=== PATIENT | female | born 1930 | race African-American/Black ===

== ENCOUNTER 2016-08-26 14:01 | Emergency (ER) | payer MEDICARE, MEDICAID ==
[2016-08-26] MEDS ORDERED: ONDANSETRON HCL INJ/PF 4 MG/2 ML SDV IV ONE (14:42)
[2016-08-26] MEDS ORDERED: NORMAL SALINE 1000 ML 1,000 ML IV ONE (14:42)
--- NOTE | 2016-08-26 14:46 | ER Document Report ---
ED Seizure - General Time seen by provider: 14:25 Mode of Arrival: Medic Information source: Relative, Emergency Med Personnel, [facility], [facility] Records <IBIS COFFEY - Last Filed: 08/26/16 17:17> <MARLA LIU - Last Filed: 08/26/16 19:54> - General Stated Complaint: WEAKNESS Notes: This 85-year-old female patient with past history of stroke and seizures brought emergency room by EMS for 2 seizures today. Most recent one just around lunchtime lasting up to 3 minutes. She seems to been nauseous today and did not eat. Emergency room she is doing some dry heaving. There's been no fever. Her stools have been loose and normally formed today. She was seen here in early March 2016 with seizures. Was given a loading dose of Keppra 500 mg, however when the send out's lab work returned she was actually therapeutic at the time. Family reports there has been no change in her Keppra dosing since then. (IBIS COFFEY) - Related Data Allergies/Adverse Reactions: No Known Allergies Allergy (Verified 07/04/15 14:13) Home Medications: Current Home Medications Apixaban [Eliquis 5 mg Tablet] 5 mg PO BID 08/26/16 [History] Escitalopram Oxalate [Lexapro 10 mg Tablet] 10 mg PO QHS 08/26/16 [History] Melatonin/Pyridoxine [Melatonin 3 Mg Tablet] 1 each PO QHS 08/26/16 [History] Potassium Chloride 10 meq PO DAILY 08/26/16 [History] Past Medical History - General Information source: Relative, Emergency Med Personnel, [facility], [facility] Records - Social History Smoking Status: Unknown if Ever Smoked Cigarette use (# per day): No Chew tobacco use (# tins/day): No Smoking Education Provided: No Frequency of alcohol use: None Drug Abuse: None Occupation: retired Lives with: Family Family History: Reviewed & Not Pertinent - Past Medical History Cardiac Medical History: Reports: Hx Atrial Fibrillation, Hx Hypertension Pulmonary Medical History: Reports: None EENT Medical History: Reports: None Neurological Medical History: Reports: 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, Hx Seizures Endocrine Medical History: Reports: None Renal/ Medical History: Reports: None GI Medical History: Reports: None Musculoskeltal Medical History: Reports Hx Arthritis Psychiatric Medical History: Reports: Hx Depression Surgical Hx: Negative - Immunizations Immunizations up to date: Yes Hx Diphtheria, Pertussis, Tetanus Vaccination: Yes <IBIS COFFEY - Last Filed: 08/26/16 17:17> Review of Systems - Review of Systems Constitutional: No symptoms reported EENT: No symptoms reported Cardiovascular: No symptoms reported Respiratory: No symptoms reported Gastrointestinal: See HPI Genitourinary: No symptoms reported Female Genitourinary: Post menopausal Musculoskeletal: See HPI Skin: No symptoms reported Hematologic/Lymphatic: No symptoms reported Neurological/Psychological: Dementia, Depression <IBIS COFFEY - Last Filed: 08/26/16 17:17> Physical Exam - Vital signs Interpretation: Normal - General General appearance: Alert In distress: None - HEENT Head: Normocephalic, Atraumatic Eyes: Normal Pupils: PERRL Mucous membranes: Normal Pharynx: Normal Neck: Normal - Respiratory Respiratory status: No respiratory distress Breath sounds: Normal - Cardiovascular Rhythm: Irregularly irregular Heart sounds: Normal auscultation Murmur: No - Abdominal Inspection: Obese Bowel sounds: Normal Tenderness: Nontender - Back Back: Normal - Extremities General upper extremity: Other - Right upper extremity contractures General lower extremity: Normal inspection - Neurological Neuro grossly intact: No Cognition: Other - Seems to be some dementia not really talking, does seem to understand her son to some degree - Psychological Associated symptoms: Confused, Psychomotor depression - Skin Skin Temperature: Warm Skin Moisture: Dry Skin Color: Normal <IBIS COFFEY - Last Filed: 08/26/16 17:17> <MARLA LIU - Last Filed: 08/26/16 19:54> - Vital signs Vitals: Temp Pulse Resp BP Pulse Ox 98.4 F 89 20 167/103 H 98 08/26/16 19:12 08/26/16 19:12 08/26/16 19:12 08/26/16 19:12 08/26/16 19:12 (MARLA LIU) - Neurological Notes: Has a right hemiparesis with contractures (IBIS COFFEY) Course - Laboratory Result Diagrams: 08/26/16 15:47 08/26/16 15:47 - Diagnostic Test Radiology reviewed: Image reviewed, Reports reviewed - Acute abdominal series does not show any acute process. - Transfer of Care Care transferred to following provider: Dr. Liu <IBIS COFFEY - Last Filed: 08/26/16 17:17> - Laboratory Result Diagrams: 08/26/16 15:47 08/26/16 15:47 <MARLA LIU - Last Filed: 08/26/16 19:54> - Re-evaluation Re-evalutation: 08/26/16 16:15 Around 1520 the patient began seizing where she looked off to the right jerking and lip smacking. When I held her hand she looked at me but clenched my hand and did not seem to be aware of her surroundings. 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 Ativan was ordered, however this seizure finally stopped long before the medication arrive so it was put on hold. (IBIS COFFEY) - Vital Signs Vital signs: Temp Pulse Resp BP Pulse Ox 99.8 F 96 18 161/98 H 99 08/26/16 19:43 08/26/16 19:43 08/26/16 19:43 08/26/16 19:43 08/26/16 19:43 (MARLA LIU) - Laboratory Laboratory results interpreted by me: 08/26/16 08/26/16 08/26/16 15:47 15:47 17:41 RDW 14.8 H Seg Neutrophils % 89.4 H Lymphocytes % 7.6 L Monocytes % 2.5 L Absolute Neutrophils 9.1 H Glucose 168 H Urine Protein 30 H Urine Ketones 20 H Urine Blood SMALL H (MARLA LIU) - Transfer of Care Notes: 08/26/16 17:17 Patient care is turned over to Dr. Liu pending urine collection and urinalysis , loading with Dilantin, and then reassessing. (IBIS COFFEY) Discharge <IBIS COFFEY - Last Filed: 08/26/16 17:17> <MARLA LIU - Last Filed: 08/26/16 19:54> - Discharge Clinical Impression: seizure with history seizure disorder Condition: Stable Disposition: HOME, SELF-CARE Additional Instructions: Seizure You have had a seizure. Seizure disorders (epilepsy) of one sort or another affect about one out of 50 people. The seizure occurs because of abnormal electrical activity in the brain. Seizures may be due to drugs and alcohol, strokes, brain injury, or infection. In the most common form of epilepsy, no cause can be found. You will require further evaluation to determine the cause of your seizure, and to determine whether anti-seizure medication is required. This follow-up testing is important, so please call us if you encounter problems with scheduling of tests or appointments. YOU SHOULD NOT DRIVE until released to do so by your physician. The law requires that seizures be reported to the boom truck driver's license bureau--a seizure while driving could be catastrophic. Call the doctor if seizures recur, or if you develop new symptoms such as fever, severe headache, stiff neck, confusion or increasing sleepiness, weakness or numbness, or visual problems. Referrals: PÉREZ BENOIT MD [Primary Care Provider] - Follow up tomorrow (Call the office first thing in the a.m. to be seen in follow-up in the a.m. as Dr. Benoit discussed with you here in the emergency department return for increasing worsening or new symptoms) Scribe Attestation: 08/26/16 17:18 I personally performed the services described in the documentation, reviewed and edited the documentation which was dictated to the scribe in my presence, and it accurately records my words and actions. (IBIS COFFEY)
[2016-08-26] MEDS ORDERED: LORAZEPAM INJ 2 MG/1 ML VIAL IV ONE (15:21)
[2016-08-26] MEDS ORDERED: PHENYTOIN SODIUM INJ/PF 250 MG/5 ML SDV IV ONE (15:40)
[2016-08-26 16:08] LABS: ABSOLUTE LYMPHOCYTES (AUTO) 0.8 10^3/uL (0.5-4.7); ABSOLUTE MONOCYTES (AUTO) 0.3 10^3/uL (0.1-1.4); ABSOLUTE NEUT (AUTO) 9.1 10^3/uL (1.7-8.2); BASOPHILS % (AUTO) 0.4 % (0-2); EOSINOPHILS % (AUTO) 0.1 % (0-6); HEMATOCRIT 41.4 % (36.0-47.0); HEMOGLOBIN 14.4 g/dL (12.0-15.5); HGB HCT DIFFERENCE 1.8; LYMPHOCYTES % (AUTO) 7.6 % (13-45); MEAN CORPUSCULAR HGB CONC 34.8 g/dL (32.0-36.0); MEAN CORPUSCULAR VOLUME 81 fl (80-97); MONOCYTES % (AUTO) 2.5 % (3-13); RED BLOOD COUNT 5.13 10^6/uL (3.72-5.28); RED CELL DISTRIBUTION WIDTH 14.8 % (11.5-14.0); SEGMENTED NEUTROPHILS % (AUTO) 89.4 % (42-78); WHITE BLOOD COUNT 10.2 10^3/uL (4.0-10.5)
[2016-08-26 16:26] LABS: ALANINE AMINOTRANSFERASE 24 U/L (9-52); ALBUMIN 4.2 g/dL (3.5-5.0); ALKALINE PHOSPHATASE 96 U/L (38-126); ANION GAP 14 (5-19); ASPARTATE AMINO TRANSFERASE 21 U/L (14-36); BILIRUBIN,TOTAL 0.8 mg/dL (0.2-1.3); BLOOD UREA NITROGEN 17 mg/dL (7-20); CALCIUM 9.4 mg/dL (8.4-10.2); CARBON DIOXIDE 25 mmol/L (22-30); CHLORIDE 101 mmol/L (98-107); CREATINE KINASE 55 U/L (30-135); CREATININE RESULT 0.61 mg/dL (0.52-1.25); GLUCOSE 168 mg/dL (75-110); POTASSIUM 3.9 mmol/L (3.6-5.0); SODIUM 140.1 mmol/L (137-145); TOTAL PROTEIN 8.2 g/dL (6.3-8.2)
[2016-08-26 16:38] LABS: CREATINE KINASE MB 0.67 ng/mL (<4.55)
[2016-08-26 16:40] LABS: TROPONIN I < 0.012 ng/mL
[2016-08-26 18:07] LABS: APPEARANCE,URINE CLEAR; BILIRUBIN,URINE NEGATIVE (NEGATIVE); GLUCOSE, URINE NEGATIVE (NEGATIVE); KETONES,URINE 20 mg/dL (NEGATIVE); LEUKOCYTE ESTERASE,URINE NEGATIVE (NEGATIVE); NITRITE,URINE NEGATIVE (NEGATIVE); PROTEIN,URINE 30 mg/dL (NEGATIVE); URINE SPECIFIC GRAVITY 1.005; UROBILINOGEN,URINE NEGATIVE mg/dL (<2.0)
--- NOTE | 2016-08-26 19:39 | ER Document Report ---
Doctor's Note Notes: 08/26/16 19:33 Patient seen and evaluated at the bedside care signed out to me by Dr. Hassan pending Dilantin infusion. Family is at the bedside patient with a history of a seizure disorder on Keppra had several seizures today. Patient with a history of CVA VA right-sided weakness and difficulty speaking at baseline. Patient seen and assessed at the bedside with family. Dr. Rivero is her primary care physician happened to be in the emergency department seeing other patients recognize them talk to them in the hallway and said that he would see them in follow-up in the office first thing tomorrow morning.(dR. RIVERO). Initially on arrival patient with elevated blood pressure 164/104, recheck vitals at the bedside 161/98 pulse 96 respiratory rate 18 O2 sat 99% on room air afebrile at 99.8. Patient is resting a phasic according to the family that's baseline. No active facial droop no nuchal rigidity right upper extremity weakness secondary to stroke which is chronic in nature. Patient is able to shake her head to me she feels better wants to go home discussed with family at the bedside. Patient was given Keppra loaded with Dilantin. She is can see her primary care physician first thing in the a.m. may need referral to a neurologist. No acute signs of infection on examination no nuchal rigidity wanting a spinal tap no focal seizures no change in neurological status according to the family. Opportunity for family did ask questions a feel comfortable taking her home at this point were arranging for transport. Discussed extensively reasons for ED return sooner 08/26/16 19:50
[2016-08-26 21:48] VITALS: BP 145/99
== END 2016-08-26 21:45 | disposition home or self-care (01) ==
LOC: ER 14:01
DX: G40.909 Epilepsy, unspecified, not intractable, without status epilepticus (principal); Z79.899 Other long term (current) drug therapy; I10 Essential (primary) hypertension; I69.351 Hemiplegia and hemiparesis following cerebral infarction affecting right dominant side; F03.90 Unspecified dementia, unspecified severity, without behavioral disturbance, psychotic disturbance, mood disturbance, and anxiety; F32.9 Major depressive disorder, single episode, unspecified
CPT/HCPCS: 99285; 96361; 96374; 96375; 36415; 82553; 82550; 85025; 80053; 81001; 84484; 74022; J1165; J2405; J7030

== ENCOUNTER 2017-05-12 12:43 | Observation (INO) | payer MEDICARE, MEDICAID ==
--- NOTE | 2017-05-12 15:47 | RADIOLOGY REPORT (SQ) ---
EXAM DESCRIPTION: CHEST SINGLE VIEW COMPLETED DATE/TIME: 05/12/2017 3:16 pm REASON FOR STUDY: afib,sob COMPARISON: Chest films 02/06/2014, 01/30/2015, 03/23/2015 EXAM PARAMETERS: NUMBER OF VIEWS: One view. TECHNIQUE: Single frontal radiographic view of the chest acquired. RADIATION DOSE: NA LIMITATIONS: None. FINDINGS: LUNGS AND PLEURA: No opacities, masses or pneumothorax. No pleural effusion. MEDIASTINUM AND HILAR STRUCTURES: No masses. Contour normal. HEART AND VASCULAR STRUCTURES: Heart normal in size. Normal vasculature. BONES: No acute findings. HARDWARE: None in the chest. OTHER: No other significant finding. IMPRESSION: NO ACUTE RADIOGRAPHIC FINDING IN THE CHEST. TECHNICAL DOCUMENTATION: JOB ID: [id number]
--- NOTE | 2017-05-12 15:50 | RADIOLOGY REPORT (SQ) ---
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 TECHNIQUE: AP pelvis and additional frog-leg view of the right and left hip. LIMITATIONS: None. FINDINGS: MINERALIZATION: Osteopenic PRIMARY HIP: No fracture or dislocation. Mild joint space narrowing and acetabular bony spurring. N o worrisome bone lesions. OPPOSITE HIP: No fracture or dislocation. Mild joint space narrowing and acetabular bony spurring. No worrisome bone lesions. PUBIS AND ISCHIUM: No fracture. PELVIS: No fracture. SACRUM: Bilateral SI joint sclerosis right greater than left. LOWER LUMBAR SPINE: Lower lumbar facet arthropathy at L4-5 and L5-S1 SOFT TISSUES: No findings. OTHER: No other significant finding. IMPRESSION: No acute fracture of the bony pelvis or hips Bilateral hip joint space narrowing and mild osteophyte formation Bilateral SI joint sclerosis TECHNICAL DOCUMENTATION: JOB ID: [id number]- All Rights Reserved
--- NOTE | 2017-05-12 16:47 | RADIOLOGY REPORT (SQ) ---
EXAM DESCRIPTION: SHOULDER BILAT 2 OR MORE VIEWS COMPLETED DATE/TIME: 05/12/2017 3:16 pm REASON FOR STUDY: osteoarthritis, multiple complaints I63.9 CEREBRAL INFARCTION, UNSPECIFIED Z79.89 9 OTHER [facility] (CURRENT) DRUG THERAPY COMPARISON: None. NUMBER OF VIEWS: Right shoulder two views, left shoulder three views TECHNIQUE: AP and Y-views right shoulder Internal rotation, external rotation, and Y view images acquired of the left shoulder. LIMITATIONS: None. FINDINGS: MINERALIZATION: Normal. BONES: No acute fracture or dislocation. No worrisome bone lesions. JOINTS: No glenohumeral dislocation. No right or left acromioclavicular joint narrowing or widening. Bony spurring along the undersurface of the right and left acromion VISUALIZED LUNGS AND RIBS: No pneumothorax. No rib fracture. SOFT TISSUES: Mild calcific tendinopathy left rotator cuff OTHER: No other significant finding. IMPRESSION: No acute changes. No high-grade joint space narrowing. Bony spurring along the undersurface of the right and left acromion, mild rotator cuff left shoulder calcific tendinopathy TECHNICAL DOCUMENTATION: JOB ID: [id number]- All Rights Reserved
--- NOTE | 2017-05-12 16:50 | RADIOLOGY REPORT (SQ) ---
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 NUMBER OF VIEWS: Two views right knee, two views left knee TECHNIQUE: AP and lateral cross-table bilateral knees. LIMITATIONS: None. FINDINGS: MINERALIZATION: Normal. RIGHT KNEE BONES: No acute fracture. No worrisome bone lesions. No joint effusion. Minimal patellofemoral comp artment joint space narrowing and bony spurring MEDIAL COMPARTMENT: Mild joint space narrowing with medial compartment osteophyte formation LATERAL COMPARTMENT: Moderate lateral compartment joint space narrowing and bony spurring. LEFT KNEE BONES: No acute fracture. No worrisome bone lesions. No joint effusion. Moderate patellofemoral shana nt space narrowing and bony spurring MEDIAL COMPARTMENT: Moderate medial compartment joint space narrowing, mild bony spurring LATERAL COMPARTMENT: Mild lateral compartment joint space narrowing and bony spurring IMPRESSION: Tricompartment osteoarthritis bilateral knees. No acute fracture. No joint effusion. TECHNICAL DOCUMENTATION: JOB ID: [id number] All Rights Reserved
[2017-05-12 16:51] LABS: HEMATOCRIT 43.2 % (36.0-47.0); HEMOGLOBIN 15.6 g/dL (12.0-15.5); HGB HCT DIFFERENCE 3.6; MEAN CORPUSCULAR HEMOGLOBIN 28.3 pg (27.0-33.4); MEAN CORPUSCULAR HGB CONC 36.2 g/dL (32.0-36.0); MEAN CORPUSCULAR VOLUME 78 fl (80-97); RED BLOOD COUNT 5.52 10^6/uL (3.72-5.28); RED CELL DISTRIBUTION WIDTH 13.9 % (11.5-14.0); WHITE BLOOD COUNT 9.2 10^3/uL (4.0-10.5)
[2017-05-12] MEDS ORDERED: OXYCODONE-ACETAMINOPHEN 5-325 MG TABLET ONE (17:22)
[2017-05-12 19:44] LABS: ALANINE AMINOTRANSFERASE 32 U/L (9-52); ALKALINE PHOSPHATASE 79 U/L (38-126); ANION GAP 16 (5-19); ASPARTATE AMINO TRANSFERASE 20 U/L (14-36); BILIRUBIN,DIRECT 0.4 mg/dL (0.0-0.4); BILIRUBIN,TOTAL 1.1 mg/dL (0.2-1.3); BLOOD UREA NITROGEN 66 mg/dL (7-20); CALCIUM 9.5 mg/dL (8.4-10.2); CARBON DIOXIDE 28 mmol/L (22-30); CHLORIDE 96 mmol/L (98-107); CREATININE RESULT 1.31 mg/dL (0.52-1.25); GLUCOSE 120 mg/dL (75-110); SODIUM 139.7 mmol/L (137-145); TOTAL PROTEIN 7.7 g/dL (6.3-8.2)
[2017-05-12 19:45] LABS: POTASSIUM 2.8 mmol/L (3.6-5.0)
[2017-05-12] MEDS ORDERED: (PENDING PHARMACY ID) (Levetiracetam [Keppra] 1,000 MG) PO SCH (19:45)
[2017-05-12] MEDS ORDERED: (PENDING PHARMACY ID) (Melatonin/Pyridoxine [Melatonin 3 Mg Tablet] 1 EACH) PO SCH (22:00)
[2017-05-12] MEDS ORDERED: (PENDING PHARMACY ID) (Melatonin/Pyridoxine Hcl (B6) [Melatonin 3 Mg Tablet] 1 EACH) PO SCH (22:00)
[2017-05-12] MEDS ORDERED: LEVETIRACETAM 500 MG TABLET PO SCH (22:00)
[2017-05-12] MEDS ORDERED: METOPROLOL TARTRATE 25 MG TABLET PO SCH (22:00)
[2017-05-12] MEDS: LEVETIRACETAM 500 MG TABLET PO SCH (22:31)
[2017-05-12] MEDS: ESCITALOPRAM OXALATE 10 MG TABLET PO SCH (22:31)
[2017-05-12] MEDS: APIXABAN 5 MG TABLET PO SCH (22:31)
[2017-05-12] MEDS: POTASSIUM CHLORIDE 20 MEQ/15 ML UDCUP PO SCH (22:31)
[2017-05-12] MEDS: VALSARTAN 160 MG TABLET PO SCH (22:31)
[2017-05-12] MEDS: HYDROCHLOROTHIAZIDE 25 MG TABLET PO SCH (22:32)
[2017-05-12] MEDS: DOXEPIN HCL 10 MG CAPSULE PO SCH (22:32)
--- NOTE | 2017-05-12 23:15 | EKG REPORT ---
SEVERITY:- ABNORMAL ECG - SINUS RHYTHM MULTIFORM VENTRICULAR PREMATURE COMPLEXES LEFT AXIS DEVIATION LEFT VENTRICULAR HYPERTROPHY : Confirmed by: Gerda Foley 12-May-2017 23:14:54
[2017-05-13] MEDS: POTASSIUM CHLORIDE 20 MEQ/15 ML UDCUP PO SCH ×2 (02:52→06:25)
[2017-05-13] MEDS ORDERED: VALSARTAN PO SCH (10:00)
[2017-05-13] MEDS ORDERED: [UNRECOGNIZED DRUG - OTHER] PO SCH (10:00)
[2017-05-13] MEDS ORDERED: (PENDING PHARMACY ID) (Levetiracetam [Keppra] 1,000 MG) PO SCH (10:00)
[2017-05-13] MEDS ORDERED: HYDROCHLOROTHIAZIDE PO SCH (10:00)
[2017-05-13] MEDS ORDERED: APIXABAN 5 MG TABLET PO SCH (10:00)
[2017-05-13] MEDS: APIXABAN 5 MG TABLET PO SCH ×2 (10:39→21:17)
[2017-05-13] MEDS: LEVETIRACETAM 500 MG TABLET PO SCH ×2 (10:39→21:17)
[2017-05-13] MEDS ORDERED: 1/2 NORMAL SALINE 1,000 ML with POTASSIUM CHLORIDE 40 MEQ IV PRN ×2 (18:47)
--- NOTE | 2017-05-13 20:25 | PDOC H&P ---
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 X- ray of the joints including the knee and the shoulder was done, it was consistent with osteoarthritis, the blood work showed hypokalemia azotemia that suggest dehydration. Past Medical History Cardiac Medical History: Reports: Atrial Fibrillation, Hypertension Neurological Medical History: Reports: Ischemic CVA, Seizures Musculoskeltal Medical History: Reports: Arthritis Psychiatric Medical History: Reports: Depression Hematology: Denies: Anemia Social History Smoking Status: Never Smoker Frequency of Alcohol Use: None Hx Recreational Drug Use: No Drugs: None Hx Prescription Drug Abuse: No Family History Family History: Reviewed & Not Pertinent Parental Family History Reviewed: Yes Children Family History Reviewed: Yes Sibling(s) Family History Reviewed.: Yes Medication/Allergy Home Medications: Apixaban [Eliquis 5 mg Tablet] 5 mg PO BID 05/12/17 Doxepin HCl [Sinequan 10 Mg Capsule] 10 mg PO QHS 05/12/17 Escitalopram Oxalate [Lexapro] 20 mg PO QHS 05/12/17 Levetiracetam [Keppra] 1,000 mg PO BID 05/12/17 Melatonin/Pyridoxine HCl (B6) [Melatonin 3 mg Tablet] 1 each PO QHS 05/12/17 Valsartan/Hydrochlorothiazide [Diovan Hct 320-25 mg Tablet] 1 each PO DAILY Allergies/Adverse Reactions: No Known Allergies Allergy (Verified 07/04/15 14:13) Review of Systems ROS unobtainable: Other - History difficult to obtain because of expressive dysphasia Ears: ABSENT: hearing changes Cardiovascular: ABSENT: chest pain, dyspnea on exertion, edema, orthropnea, palpitations Respiratory: ABSENT: cough, hemoptysis Gastrointestinal: ABSENT: as per HPI, abdominal pain, bloating, coffee ground emesis, constipation, diarrhea, dysphagia, heartburn, hematemesis, hematochezia , melena, nausea, vomiting, other Genitourinary: ABSENT: dysuria, hematuria Musculoskeletal: PRESENT: back pain, joint swelling Integumentary: ABSENT: rash, wounds Neurological: PRESENT: abnormal speech Psychiatric: ABSENT: anxiety, depression, homidical ideation, suicidal ideation Endocrine: ABSENT: cold intolerance, heat intolerance, menstrual abnormalities, polydipsia, polyuria Hematologic/Lymphatic: ABSENT: easy bleeding, easy bruising, lymphadenopathy Physical Exam Vital Signs: Temp Pulse Resp BP Pulse Ox 97.8 F 108 H 18 137/85 H 97 05/13/17 16:00 05/13/17 16:00 05/13/17 16:00 05/13/17 16:00 05/13/17 16:00 Intake & Output 05/12/17 05/13/17 05/14/17 06:59 06:59 06:59 Intake Total 780 Output Total 300 Balance 480 Weight 73.2 kg General appearance: PRESENT: no acute distress Head exam: PRESENT: atraumatic, normocephalic Eye exam: PRESENT: conjunctiva pink, EOMI, PERRLA. ABSENT: scleral icterus Mouth exam: PRESENT: dry mucosa Neck exam: PRESENT: full ROM Respiratory exam: PRESENT: clear to auscultation jesus manuel Cardiovascular exam: PRESENT: RRR Vascular exam: PRESENT: normal capillary refill GI/Abdominal exam: PRESENT: normal bowel sounds, soft Rectal exam: PRESENT: deferred Neurological exam: PRESENT: alert, motor sensory deficit - Right sided hemiplegia Psychiatric exam: PRESENT: appropriate affect, normal mood Skin exam: PRESENT: dry, intact, warm Results Laboratory Results: 05/12/17 16:30 05/13/17 15:12 05/13/17 15:12 Sodium Cancelled Potassium Cancelled Chloride Cancelled Carbon Dioxide Cancelled Anion Gap Cancelled BUN Cancelled Creatinine Cancelled Est GFR ( Amer) Cancelled Est GFR (Non-Af Amer) Cancelled Glucose Cancelled Calcium Cancelled Total Bilirubin Cancelled AST Cancelled ALT Cancelled Alkaline Phosphatase Cancelled Total Protein Cancelled Albumin Cancelled Impressions: Chest X-Ray 05/12/17 13:57 IMPRESSION: NO ACUTE RADIOGRAPHIC FINDING IN THE CHEST. Hip X-Ray 05/12/17 13:57 IMPRESSION: No acute fracture of the bony pelvis or hips Bilateral hip joint space narrowing and mild osteophyte formation Bilateral SI joint sclerosis Knee X-Ray 05/12/17 13:58 IMPRESSION: Tricompartment osteoarthritis bilateral knees. No acute fracture. No joint effusion. Shoulder X-Ray 05/12/17 13:58 IMPRESSION: No acute changes. No high-grade joint space narrowing. Bony spurring along the undersurface of the right and left acromion, mild rotator cuff left shoulder calcific tendinopathy Assessment & Plan - Diagnosis (1) Dehydration Is this a current diagnosis for this admission?: Yes Plan: Patient is admitted for observation and hydration (2) Hypokalemia Is this a current diagnosis for this admission?: Yes (3) Other polyosteoarthritis Is this a current diagnosis for this admission?: Yes
[2017-05-13] MEDS: OXYCODONE-ACETAMINOPHEN 5-325 MG TABLET PO PRN (20:32)
[2017-05-13] MEDS: VALSARTAN 160 MG TABLET PO SCH (21:17)
[2017-05-13] MEDS: HYDROCHLOROTHIAZIDE 25 MG TABLET PO SCH (21:17)
[2017-05-13] MEDS: ESCITALOPRAM OXALATE 10 MG TABLET PO SCH (21:17)
[2017-05-13] MEDS: DOXEPIN HCL 10 MG CAPSULE PO SCH (21:17)
[2017-05-14] MEDS: OXYCODONE-ACETAMINOPHEN 5-325 MG TABLET PO PRN ×2 (02:10→11:10)
[2017-05-14 07:25] LABS: ALANINE AMINOTRANSFERASE 22 U/L (9-52); ALBUMIN 4.1 g/dL (3.5-5.0); ALKALINE PHOSPHATASE 70 U/L (38-126); ANION GAP 12 (5-19); ASPARTATE AMINO TRANSFERASE 23 U/L (14-36); BILIRUBIN,DIRECT 0.6 mg/dL (0.0-0.4); BILIRUBIN,TOTAL 0.9 mg/dL (0.2-1.3); BLOOD UREA NITROGEN 45 mg/dL (7-20); CALCIUM 9.2 mg/dL (8.4-10.2); CARBON DIOXIDE 29 mmol/L (22-30); CHLORIDE 101 mmol/L (98-107); CREATININE RESULT 0.98 mg/dL (0.52-1.25); GLUCOSE 100 mg/dL (75-110); POTASSIUM 4.3 mmol/L (3.6-5.0); SODIUM 141.7 mmol/L (137-145); TOTAL PROTEIN 8.3 g/dL (6.3-8.2)
[2017-05-14] MEDS: APIXABAN 5 MG TABLET PO SCH (10:04)
[2017-05-14] MEDS: LEVETIRACETAM 500 MG TABLET PO SCH (10:04)
[2017-05-14 18:31] VITALS: BP 150/90
--- NOTE | 2017-05-14 20:37 | PDOC DISCHARGE SUMMARY ---
General - Admit/Disc Date/PCP Admission Date/Primary Care Provider: 05/12/17 12:44 PÉREZ RIVERO MD Discharge Date: 05/14/17 - Discharge Diagnosis (1) Dehydration Is this a current diagnosis for this admission?: Yes (2) Hypokalemia Is this a current diagnosis for this admission?: Yes (3) Other polyosteoarthritis Is this a current diagnosis for this admission?: Yes - Additional Information Discharge Diet: Regular Discharge Activity: Activity As Tolerated Home Medications: Apixaban [Eliquis 5 mg Tablet] 5 mg PO BID 05/12/17 Escitalopram Oxalate [Lexapro] 20 mg PO QHS 05/12/17 Levetiracetam [Keppra] 1,000 mg PO BID 05/12/17 Melatonin/Pyridoxine HCl (B6) [Melatonin 3 mg Tablet] 1 each PO QHS 05/12/17 Valsartan/Hydrochlorothiazide [Diovan Hct 320-25 mg Tablet] 1 each PO DAILY Melatonin/Pyridoxine [Melatonin 3 mg Tablet] 1 each PO .QHS 05/14/17 Tramadol HCl/Acetaminophen [Ultracet 37.5 mg/325 mg Tablet] 1 each PO Q6H #60 tablet 05/14/17 History of Present Illness History of Present Illness: EDWINA MARIE is a 86 year old female, she has a history of cerebrovascular accident with residual right-sided hemiplegia, expressive dysphasia, pseudobulbar affect, she came to the office with family for evaluation of multiple complaints, including poor intake, poor drinking, pain in multiple joints, the etiology of this complaints was not apparent in the office, she was admitted into the hospital for observation and evaluation of her symptoms. X- ray of the joints including the knee and the shoulder was done, it was consistent with osteoarthritis, the blood work showed hypokalemia azotemia that suggest dehydration. Hospital Course Hospital Course: Patient was admitted for the management of dehydration, hypokalemia and also osteoarthritis. She was treated with IV fluids, potassium was replaced there was improvement in the azotemia on the hypokalemia. Physical Exam Vital Signs: Temp Pulse Resp BP Pulse Ox 97.5 F 67 18 150/90 H 100 05/14/17 18:29 05/14/17 18:29 05/14/17 18:29 05/14/17 18:29 05/14/17 18:29 Intake & Output 05/13/17 05/14/17 05/15/17 06:59 06:59 06:59 Intake Total 780 1680 360 Output Total 300 Balance 480 1680 360 Weight 73.2 kg General appearance: PRESENT: no acute distress, well-developed, well-nourished Head exam: PRESENT: atraumatic, normocephalic Eye exam: PRESENT: conjunctiva pink, EOMI, PERRLA Ear exam: PRESENT: normal external ear exam Mouth exam: PRESENT: moist, tongue midline Neck exam: PRESENT: full ROM Respiratory exam: PRESENT: clear to auscultation jesus manuel Cardiovascular exam: PRESENT: RRR, +S1, +S2 Pulses: PRESENT: normal dorsalis pedis pul, +2 pedal pulses bilateral Vascular exam: PRESENT: normal capillary refill GI/Abdominal exam: PRESENT: normal bowel sounds, soft Rectal exam: PRESENT: deferred Neurological exam: PRESENT: alert, awake, oriented to person, oriented to place , oriented to time, oriented to situation, CN II-XII grossly intact Psychiatric exam: PRESENT: appropriate affect, normal mood Skin exam: PRESENT: dry, intact, warm Results Laboratory Results: 05/12/17 16:30 05/14/17 06:54 05/14/17 06:54 Sodium 141.7 Potassium 4.3 Chloride 101 Carbon Dioxide 29 Anion Gap 12 BUN 45 H Creatinine 0.98 Est GFR ( Amer) > 60 Est GFR (Non-Af Amer) 54 L Glucose 100 Calcium 9.2 Total Bilirubin 0.9 AST 23 ALT 22 Alkaline Phosphatase 70 Total Protein 8.3 H Albumin 4.1 Impressions: Chest X-Ray 05/12/17 13:57 IMPRESSION: NO ACUTE RADIOGRAPHIC FINDING IN THE CHEST. Hip X-Ray 05/12/17 13:57 IMPRESSION: No acute fracture of the bony pelvis or hips Bilateral hip joint space narrowing and mild osteophyte formation Bilateral SI joint sclerosis Knee X-Ray 05/12/17 13:58 IMPRESSION: Tricompartment osteoarthritis bilateral knees. No acute fracture. No joint effusion. Shoulder X-Ray 05/12/17 13:58 IMPRESSION: No acute changes. No high-grade joint space narrowing. Bony spurring along the undersurface of the right and left acromion, mild rotator cuff left shoulder calcific tendinopathy
== END 2017-05-14 18:35 | disposition home or self-care (01) ==
LOC: HOLD 1 12:43 → 5 12:44
PROVIDERS: ADMIT Internal Medicine; ATTEND Internal Medicine
DX: E86.0 Dehydration (principal); E87.6 Hypokalemia; M15.8 Other polyosteoarthritis; I69.351 Hemiplegia and hemiparesis following cerebral infarction affecting right dominant side; I69.321 Dysphasia following cerebral infarction; I69.315 Cognitive social or emotional deficit following cerebral infarction; I48.91 Unspecified atrial fibrillation; I10 Essential (primary) hypertension; Z79.02 Long term (current) use of antithrombotics/antiplatelets; Z79.899 Other long term (current) drug therapy
CPT/HCPCS: 36415 ×2; 87040; 85027; 80076; 80048; 80053; 71010; 73522; 73030; 73560; 93005; 93010; A9270 ×17; J3480; J3490

== ENCOUNTER 2017-05-15 14:28 | Emergency (ER) | payer MEDICARE, MEDICAID ==
--- NOTE | 2017-05-15 14:53 | ER Document Report ---
ED General - General Mode of Arrival: Medic Information source: Relative TRAVEL OUTSIDE OF THE [place] IN LAST 30 DAYS: No <NELY THOMAS - Last Filed: 05/15/17 23:17> <SACHI RAE - Last Filed: 05/15/17 23:24> - General Stated Complaint: POSSIBLE SEIZURE Time Seen by Provider: 05/15/17 14:39 Notes: Patient is an 86 year old female presenting to the emergency department with family members for possible seizure. Patient was recently admitted for observation due to possible dehydration and joint pain. Patient was discharged from the hospital yesterday after she was hydrated with IV fluids. Patient has a home health aid during the day who stated that she was shaking some and also had some foaming at the mouth. Patient has a history of seizures and her last one was about 2-3 months ago. Patient has had a lack of appetite, poor fluid intake, and missed her medications today which include: Keppra 1000 mg, Eliquis 5 mg, valsartan 320 25 mg, amlodipine 10 mg, and escitalopram 20 mg. Patient is not acting at baseline and is non-verbal. Relatives state that the patient was agitated this morning. 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 Patient's PCP is Dr. Jo. (NELY THOMAS) - Related Data Allergies/Adverse Reactions: No Known Allergies Allergy (Verified 07/04/15 14:13) Past Medical History - General Information source: Relative - Social History Smoking Status: Never Smoker Cigarette use (# per day): No Chew tobacco use (# tins/day): No Smoking Education Provided: No Frequency of alcohol use: None Drug Abuse: None Family History: None Patient has suicidal ideation: No Patient has homicidal ideation: No - Past Medical History Cardiac Medical History: Reports: Hx Atrial Fibrillation, Hx Hypertension Neurological Medical History: Reports: 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, Hx Seizures Musculoskeltal Medical History: Reports Hx Arthritis Psychiatric Medical History: Reports: Hx Depression Past Surgical History: Reports: None - Immunizations Immunizations up to date: Yes Hx Diphtheria, Pertussis, Tetanus Vaccination: Yes <NELY THOMAS - Last Filed: 05/15/17 23:17> Review of Systems - Review of Systems Respiratory: See HPI, Cough Gastrointestinal: See HPI, Poor appetite, Poor fluid intake Neurological/Psychological: See HPI, Seizure - mild shaking and foaming from the mouth -: Yes All other systems reviewed and negative <NELY THOMAS - Last Filed: 05/15/17 23:17> Physical Exam - Vital signs Interpretation: Hypotensive - 90/65, Tachycardic - 140s <NELY THOMAS - Last Filed: 05/15/17 23:17> <SACHI RAE - Last Filed: 05/15/17 23:24> - Vital signs Vitals: BP 90/65 L 05/15/17 14:37 - Notes Notes: GENERAL: Somnolent initially and moaning. Later patient is awake, agitated and resisting IV. Mild distress. HEAD: Normocephalic, atraumatic. EYES: Pupils equal, round, and reactive to light. Extraocular movements intact. ENT: Oral mucosa dry, tongue midline. NECK: Full range of motion. Supple. Trachea midline. LUNGS: Clear to auscultation bilaterally, dry cough, no wheezes, rales, or rhonchi. No respiratory distress. HEART: Tachycardia highest rate of 160. Irregularly irregular. No murmurs, gallops, or rubs. ABDOMEN: Soft, non-tender. Non-distended. Bowel sounds present in all 4 quadrants. EXTREMITIES: Moves the left arm spontaneously, does not move right arm. Withdraws from Babinski reflex on the left side, does not withdraw to painful stimuli on the right side. No edema, radial and dorsalis pedis pulses 2/4 bilaterally. No cyanosis. NEUROLOGICAL: Not following commands. Non-verbal. PSYCH: Somnolent initially and later agitated. SKIN: Warm, dry, normal turgor. No rashes or lesions noted. (NELY THOMAS) Course - Laboratory Result Diagrams: 05/15/17 17:10 - Consults Dr. Rm Time consulted: 18:03 <NELY THOMAS - Last Filed: 05/15/17 23:17> - Laboratory Result Diagrams: 05/15/17 17:10 <SACHI RAE - Last Filed: 05/15/17 23:24> - Re-evaluation Re-evalutation: 05/15/17 14:45 Family presented a new medication that the patient was prescribed at discharge. This medication was tramedol and the family was instructed to not let the patient take this medication because it can cause seizures. The patient had not started taking this medication. (NELY THOMAS) 05/15/17 19:04 Made a very difficult time obtaining IV access on this patient, I did obtain an ultrasound-guided IV in the right arm however this then infiltrated, chemistries were able to be obtained, CBC clotted, chemistry shows increased BUN and creatinine compared to discharge and compared to prior admission however patient has since woken up, has been able to drink a quart of Gatorade, is able to take her pills. CT scan of the head is negative for any acute process, does show a large encephalomalacia related to prior stroke, chest x- ray does not show any new process. Discussed the case with Dr. Jo who stated now that she has had another seizure he would not use the tramadol either, recommends against narcotics as it will worsen fatigue, states that if the patient is not eating and drinking that she would need to be admitted for PEG tube however if the family can get her to eat or drink she should be discharged to home for oral rehydration and follow-up with him in the office next week. The patient does not want a PEG tube at this time, they have been able to get her to eat and drink and take her pills. At this time there are choosing to be discharged home. Patient's A. fib has resolved and she has returned to normal sinus rhythm at a rate of 69 volume at the bedside discussing with them, blood pressure is also normalized, she is no longer hypotensive despite not getting IV fluids. Patient is also wide awake, the states she is acting like her usual self. They are concerned that she is not sleeping well, they would like something to help her sleep at night, I have offered Vistaril as a trial I am hesitant to try anything else. Patient will be discharged to home. Suspect her altered mental status this afternoon came from what appears to be a seizure this morning. ( SACHI RAE) - Vital Signs Vital signs: Temp Pulse Resp BP Pulse Ox 97.9 F 115 H 20 135/74 H 99 05/15/17 19:43 05/15/17 19:43 05/15/17 19:43 05/15/17 19:43 05/15/17 19:43 - Laboratory Laboratory results interpreted by me: 05/15/17 17:10 BUN 45 H Creatinine 1.89 H Est GFR ( Amer) 31 L Est GFR (Non-Af Amer) 25 L - Consults Dr. mR Reason for consultation: 05/15/17 18:[address] Rm to discuss patient and lab results. Dr. Rm recommends no narcotics for her joint pain because they will decrease the patient's appetite and increase the patient's drowsiness. Dr. Rm also recommends if the patient can eat or drink she can be discharged to home and follow up as an outpatient. If the patient cannot eat or drink then he will discuss admission or other care options. (NELY THOMAS) Discharge <NELY THOMAS - Last Filed: 05/15/17 23:17> <SACHI RAE - Last Filed: 05/15/17 23:24> - Discharge Clinical Impression: Seizure, Dehydration Acute renal failure Qualifiers: Acute renal failure type: unspecified Qualified Code(s): N17.9 - Acute kidney failure, unspecified Hypertension Qualifiers: Hypertension type: essential hypertension Qualified Code(s): I10 - Essential ( primary) hypertension Condition: Stable Disposition: HOME, SELF-CARE Additional Instructions: Please provide plenty of fluids, she may drink water, Gatorade, Pedialyte, milk shakes, Ensure, Glucerna or any other fluids that she would like aside from alcohol or caffeinated fluids. Provide her with any foods she is interested in eating. Today she was found to be dehydrated. I did discuss her with Dr. Jo who states that if over the weekend she is unable to continue eating and drinking that she will need to discuss the possibility of a feeding tube with you next week. He recommends follow-up in his office next week rather than admission at this time as she was able to drink here. Please return to the emergency department for refusal to eat or drink or any new or concerning symptoms. Prescriptions: Ondansetron [Zofran Odt 4 mg Tablet] 1 tab PO Q4H PRN #15 tab.rapdis PRN Reason: For Nausea/Vomiting Referrals: VERONIQUE JO MD [Primary Care Provider] - Follow up in 1 week Scribe Attestation: 05/15/17 23:24 I personally performed the services described in the documentation, reviewed and edited the documentation which was dictated to the scribe in my presence, and it accurately records my words and actions. (SACHI RAE) Scribe Documentation - Scribe Written by Keniaibdoris:: Rolf Rock 05/15/2017 15:32 acting as scribe for :: Camelia <NELY THOMAS - Last Filed: 05/15/17 23:17>
[2017-05-15] MEDS ORDERED: ESCITALOPRAM OXALATE 10 MG TABLET PO ONE (14:54)
[2017-05-15] MEDS ORDERED: NORMAL SALINE 1000 ML 1,000 ML IV ONE (14:54)
[2017-05-15] MEDS ORDERED: AMLODIPINE BESYLATE 10 MG TABLET PO ONE (14:54)
[2017-05-15] MEDS ORDERED: LEVETIRACETAM 1000 MG/NACL-ISO 1,000 MG/100 ML RTUPB IV ONE (14:54)
[2017-05-15] MEDS ORDERED: VALSARTAN 160 MG TABLET PO ONE (14:54)
--- NOTE | 2017-05-15 16:31 | RADIOLOGY REPORT (SQ) ---
EXAM DESCRIPTION: CT HEAD WITHOUT COMPLETED DATE/TIME: 05/15/2017 4:15 pm REASON FOR STUDY: seizures, on blood thinnners COMPARISON: 03/20/2016 and 07/04/2015 TECHNIQUE: Axial images acquired through the brain without intravenous contrast. Images reviewed wi th bone, brain and subdural windows. Images stored on PACS. All CT scanners at this facility use dose modulation, iterative reconstruction, and/or weight based d osing when appropriate to reduce radiation dose to as low as reasonably achievable (ALARA). [facility]: Dose Right [facility]: CareDose [facility]: Dose Right [facility]: Teradose 4D [facility]: Smart [employer] RADIATION DOSE: Up-to-date CT equipment and radiation dose reduction techniques were employed. CTDIv ol: 64.6 mGy. DLP: 1163 mGy-cm.mGy. LIMITATIONS: None. FINDINGS: VENTRICLES: Ex vacuo dilatation of the left lateral ventricle on the basis of large territ ory ischemic event, chronic. CEREBRUM: No masses. No hemorrhage. No midline shift. Large territory encephalomalacia involving l eft frontal and temporal lobes, consistent with previous left MCA infarct. Additional scattered area s of low density in the white matter most likely due to chronic micro-vascular ischemic change. No e vidence for acute infarction. CEREBELLUM: No masses. No hemorrhage. No alteration of density. No evidence for acute infarction. EXTRAAXIAL SPACES: Age-related involutional change. No fluid collections. No masses. ORBITS AND GLOBE: No intra- or extraconal masses. Normal contour of globe without masses. CALVARIUM: No fracture. PARANASAL SINUSES: No fluid or mucosal thickening. SOFT TISSUES: No mass or hematoma. OTHER: No other significant finding. IMPRESSION: Stable CT appearance of the brain, again demonstrating large territory encephalomalacia on a background of chronic microvascular ischemia. No evidence of acute intracranial hemorrhage. EVIDENCE OF ACUTE STROKE: NO. TECHNICAL DOCUMENTATION: JOB ID: [id number] Quality ID # [id number]: Final reports with documentation of one or more dose reduction techniques (e.g., Au tomated exposure control, adjustment of the mA and/or kV according to patient size, use of iterative reconstruction technique) 2010 [employer]- All Rights Reserved
--- NOTE | 2017-05-15 16:32 | RADIOLOGY REPORT (SQ) ---
EXAM DESCRIPTION: CHEST SINGLE VIEW COMPLETED DATE/TIME: 05/15/2017 4:16 pm REASON FOR STUDY: seizures, cough, AMS COMPARISON: 05/12/2017 EXAM PARAMETERS: NUMBER OF VIEWS: One view. TECHNIQUE: Single frontal radiographic view of the chest acquired. RADIATION DOSE: NA LIMITATIONS: None. FINDINGS: LUNGS AND PLEURA: No opacities, masses or pneumothorax. No pleural effusion. MEDIASTINUM AND HILAR STRUCTURES: No masses. Contour normal. HEART AND VASCULAR STRUCTURES: Heart normal in size. Normal vasculature. BONES: No acute findings. HARDWARE: None in the chest. OTHER: No other significant finding. IMPRESSION: NO ACUTE RADIOGRAPHIC FINDING IN THE CHEST. TECHNICAL DOCUMENTATION: JOB ID: [id number]
[2017-05-15 17:54] LABS: ALANINE AMINOTRANSFERASE 25 U/L (9-52); ALBUMIN 3.9 g/dL (3.5-5.0); ALKALINE PHOSPHATASE 68 U/L (38-126); ANION GAP 15 (5-19); ASPARTATE AMINO TRANSFERASE 25 U/L (14-36); BILIRUBIN,DIRECT 0.4 mg/dL (0.0-0.4); BILIRUBIN,TOTAL 0.7 mg/dL (0.2-1.3); BLOOD UREA NITROGEN 45 mg/dL (7-20); CALCIUM 9.3 mg/dL (8.4-10.2); CARBON DIOXIDE 26 mmol/L (22-30); CHLORIDE 100 mmol/L (98-107); CREATINE KINASE 104 U/L (30-135); CREATININE RESULT 1.89 mg/dL (0.52-1.25); GLUCOSE 110 mg/dL (75-110); POTASSIUM 4.2 mmol/L (3.6-5.0); SODIUM 140.8 mmol/L (137-145); TOTAL PROTEIN 7.7 g/dL (6.3-8.2)
[2017-05-15 19:45] VITALS: BP 135/74
[2017-05-15] MEDS ORDERED: HYDROXYZINE PAMOATE 25 MG CAPSULE #4 (ER DISP) PO SCH (22:00)
--- NOTE | 2017-05-16 09:38 | EKG REPORT ---
SEVERITY:- ABNORMAL ECG - ATRIAL FIBRILLATION, V-RATE 68-140 LEFT ANTERIOR FASCICULAR BLOCK PROBABLE LVH WITH SECONDARY REPOL ABNRM BORDERLINE PROLONGED QT INTERVAL : Confirmed by: Gerda Foley 16-May-2017 09:37:43
== END 2017-05-15 19:45 | disposition home or self-care (01) ==
LOC: ER 14:28
DX: R56.9 Unspecified convulsions (principal); E86.0 Dehydration; N17.9 Acute kidney failure, unspecified; I10 Essential (primary) hypertension; Z79.899 Other long term (current) drug therapy
CPT/HCPCS: 93005; 99285; 36415; 82553; 82550; 80053; 71010; 70450; 93010; J3490; A9270

== ENCOUNTER → 2018-05-10 | Outpatient (CLI) | payer MEDICARE, MEDICAID ==
--- NOTE | 2018-05-10 17:30 | RADIOLOGY REPORT (SQ) ---
EXAM DESCRIPTION: CHEST PA/LATERAL COMPLETED DATE/TIME: 05/10/2018 3:56 pm REASON FOR STUDY: ACUTE SYSTOLIC (CONGESTIVE) HEART FAILURE COMPARISON: 03/23/2015. EXAM PARAMETERS: NUMBER OF VIEWS: two views TECHNIQUE: Digital Frontal and Lateral radiographic views of the chest acquired. RADIATION DOSE: NA LIMITATIONS: none FINDINGS: LUNGS AND PLEURA: No opacities, masses or pneumothorax. No pleural effusion. MEDIASTINUM AND HILAR STRUCTURES: No masses or contour abnormalities. HEART AND VASCULAR STRUCTURES: Cardiomegaly. Mild vascular congestion. BONES: No acute findings. Degenerative changes in the spine. HARDWARE: None in the chest. OTHER: No other significant finding. IMPRESSION: CARDIOMEGALY WITH MILD VASCULAR CONGESTION. TECHNICAL DOCUMENTATION: JOB ID: [id number] [employer]- All Rights Reserved Reading location - IP/workstation name: [email or web address]
== END ==
LOC: OD 15:28
PROVIDERS: ATTEND Internal Medicine
DX: I50.21 Acute systolic (congestive) heart failure (principal)
CPT/HCPCS: 71046

== ENCOUNTER → 2018-06-21 | Outpatient (CLI) | payer MEDICARE, MEDICAID | LOC: OD 16:15 | PROVIDERS: ATTEND Internal Medicine | DX: R19.7 Diarrhea, unspecified (principal) | CPT/HCPCS: 87045; 87205; 87493; 89055 ==

== ENCOUNTER 2018-06-24 17:35 | Inpatient (IN) | payer MEDICARE, MEDICAID ==
--- NOTE | 2018-06-24 17:50 | ER Document Report ---
ED Medical Screen (RME) - General Chief Complaint: Abnormal Lab Results Stated Complaint: ABNORMAL LABS Time Seen by Provider: 06/24/18 17:48 Notes: 86 years old elderly female was brought in today because of not been eating, vomited once. Otherwise has no symptoms. Primary care physician has evaluated her fully. There is no positive finding. According to the son. TRAVEL OUTSIDE OF THE [place] IN LAST 30 DAYS: No - Related Data Allergies/Adverse Reactions: No Known Allergies Allergy (Verified 06/24/18 17:35) Past Medical History - Past Medical History Cardiac Medical History: Reports: Hx Atrial Fibrillation, Hx Hypertension Neurological Medical History: Reports: Hx Cerebrovascular Accident - 2013 with right-sided hemiparesis, Hx Seizures Renal/ Medical History: Denies: Hx Peritoneal Dialysis Musculoskeltal Medical History: Reports Hx Arthritis Psychiatric Medical History: Reports: Hx Depression - Immunizations Immunizations up to date: Yes Hx Diphtheria, Pertussis, Tetanus Vaccination: Yes History of Influenza Vaccine for 04/2017 - 09/2017 Season: Refused Physical Exam - Vital signs Vitals: Temp Pulse Resp BP Pulse Ox 97.5 F 48 L 14 128/102 H 96 06/24/18 17:39 06/24/18 17:39 06/24/18 17:39 06/24/18 17:39 06/24/18 17:39 Course - Vital Signs Vital signs: Temp Pulse Resp BP Pulse Ox 97.5 F 48 L 14 128/102 H 96 06/24/18 17:39 06/24/18 17:39 06/24/18 17:39 06/24/18 17:39 06/24/18 17:39 Doctor's Discharge - Discharge Referrals: VERONIQUE JO MD [Primary Care Provider] - Follow up as needed
--- NOTE | 2018-06-24 18:47 | RADIOLOGY REPORT (SQ) ---
EXAM DESCRIPTION: XR ABDOMEN SUPINE AND ERECT WITH CHEST (ABD ACUTE SERIES) COMPLETED DATE/TME: 06/24/2018 17:49 CLINICAL HISTORY: 86 years, Female, Abdominal pain COMPARISON: None. NUMBER OF VIEWS: TECHNIQUE: LIMITATIONS: None. FINDINGS: No evidence of bowel obstruction. No free air. There are no abnormal calcifications. The chest is unremarkable. IMPRESSION: No acute finding. copyright 2010 [employer]- All Rights Reserved
[2018-06-24 20:14] LABS: ABSOLUTE BASOPHILS # (AUTO) 0.1 10^3/uL (0.0-0.2); ABSOLUTE LYMPHOCYTES (AUTO) 1.9 10^3/uL (0.5-4.7); ABSOLUTE MONOCYTES (AUTO) 1.1 10^3/uL (0.1-1.4); ABSOLUTE NEUT (AUTO) 6.1 10^3/uL (1.7-8.2); EOSINOPHILS % (AUTO) 0.2 % (0-6); HEMATOCRIT 39.4 % (36.0-47.0); HEMOGLOBIN 13.7 g/dL (12.0-15.5); LYMPHOCYTES % (AUTO) 21.1 % (13-45); MEAN CORPUSCULAR HEMOGLOBIN 27.6 pg (27.0-33.4); MEAN CORPUSCULAR HGB CONC 34.8 g/dL (32.0-36.0); MEAN CORPUSCULAR VOLUME 79 fl (80-97); MONOCYTES % (AUTO) 11.6 % (3-13); PLATELET COUNT 226 10^3/uL (150-450); RED BLOOD COUNT 4.97 10^6/uL (3.72-5.28); RED CELL DISTRIBUTION WIDTH 16.2 % (11.5-14.0); SEGMENTED NEUTROPHILS % (AUTO) 66.1 % (42-78); TOTAL CELLS COUNTED % (AUTO) 100 %; WHITE BLOOD COUNT 9.2 10^3/uL (4.0-10.5)
[2018-06-24 20:32] LABS: ALANINE AMINOTRANSFERASE 10 U/L (9-52); ALBUMIN 3.7 g/dL (3.5-5.0); ALKALINE PHOSPHATASE 84 U/L (38-126); ANION GAP 13 (5-19); ASPARTATE AMINO TRANSFERASE 21 U/L (14-36); BILIRUBIN,DIRECT 0.3 mg/dL (0.0-0.4); BILIRUBIN,TOTAL 0.4 mg/dL (0.2-1.3); BLOOD UREA NITROGEN 42 mg/dL (7-20); CALCIUM 9.7 mg/dL (8.4-10.2); CARBON DIOXIDE 26 mmol/L (22-30); CHLORIDE 110 mmol/L (98-107); GLUCOSE 105 mg/dL (75-110); POTASSIUM 3.8 mmol/L (3.6-5.0); SODIUM 149.4 mmol/L (137-145); TOTAL PROTEIN 8.7 g/dL (6.3-8.2)
[2018-06-24] MEDS ORDERED: NORMAL SALINE 1000 ML 500 ML IV ONE (20:35)
[2018-06-24] MEDS ORDERED: ONDANSETRON HCL INJ/PF 4 MG/2 ML SDV IV ONE (20:36)
--- NOTE | 2018-06-24 20:40 | ER Document Report ---
ED General - General Chief Complaint: Abnormal Lab Results Stated Complaint: ABNORMAL LABS Time Seen by Provider: 06/24/18 17:48 Cannot obtain history due to: Dementia Notes: Patient is an 86-year old female with a past medical history of advanced dementia generally does not speak who presents with her family due to concerns of not eating or drinking and continuing to have diarrhea for the past 1 week. The patient herself is unable to provide any meaningful history. Family at the bedside likewise is not very firm on their history as apparently the son who was primarily concerned is not currently available for history taking. The daughter at the bedside does however report that the patient has not been eating or drinking for at least the past 1 week, has been increasingly agitated and confused relative to her baseline, and continues to have persistent nonbloody diarrhea. She also probably had one episode of nonbilious vomiting today. She did see her primary care physician on the fourth for the same, had negative stool studies at that time. They did contact the primary care doctor' s office today and were referred to the emergency department. TRAVEL OUTSIDE OF THE [place] IN LAST 30 DAYS: No - Related Data Allergies/Adverse Reactions: No Known Allergies Allergy (Verified 06/24/18 17:35) Past Medical History - General Information source: Relative Cannot obtain history due to: Dementia - Social History Smoking Status: Never Smoker Frequency of alcohol use: None Drug Abuse: None Lives with: Family Family History: Reviewed & Not Pertinent Patient has suicidal ideation: No Patient has homicidal ideation: No - Past Medical History Cardiac Medical History: Reports: Hx Atrial Fibrillation, Hx Hypertension Neurological Medical History: Reports: 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, Hx Seizures Renal/ Medical History: Denies: Hx Peritoneal Dialysis Musculoskeletal Medical History: Reports Hx Arthritis Psychiatric Medical History: Reports: Hx Depression - Immunizations Immunizations up to date: Yes Hx Diphtheria, Pertussis, Tetanus Vaccination: Yes Review of Systems - Review of Systems -: Yes ROS unobtainable due to patient's medical condition Physical Exam - Vital signs Vitals: Temp Pulse Resp BP Pulse Ox 97.5 F 48 L 14 128/102 H 96 06/24/18 17:39 06/24/18 17:39 06/24/18 17:39 06/24/18 17:39 06/24/18 17:39 Interpretation: Tachycardic - Initial quarter heart rate is not accurate. Patient's heart rate has consistently been in the 115-140 range Notes: PHYSICAL EXAMINATION: GENERAL: Elderly but in no acute distress HEAD: Atraumatic, normocephalic. EYES: Pupils equal round and reactive to light, extraocular movements intact, sclera anicteric, conjunctiva are normal. ENT: nares patent, oropharynx clear without exudates. Dry mucous membranes. NECK: Normal range of motion, supple without lymphadenopathy LUNGS: Breath sounds clear to auscultation bilaterally and equal. No wheezes rales or rhonchi. HEART: Irregularly irregular tachycardia without murmurs ABDOMEN: Soft, nontender, normoactive bowel sounds. No guarding, no rebound. No masses appreciated. EXTREMITIES: Normal range of motion, no pitting or edema. No cyanosis. NEUROLOGICAL: No focal neurological deficits. Moves all extremities spontaneously and on command. PSYCH: Nonverbal SKIN: Warm, Dry, normal turgor, no rashes or lesions noted. Course - Re-evaluation Re-evalutation: 06/24/18 20:37 Patient is an 86-year-old patient with advanced dementia, generally does not speak who presents with several days of not eating, one episode of vomiting and persistent diarrhea for the past 1 week. At the time of my evaluation the patient does appear somewhat dehydrated but is otherwise in no acute distress. She is noted to be in A. fib with rapid ventricular response rates ranging between 115-140. She does not normally require rate control based on medication review. Is on apixaban for anticoagulation. Patient has been initiated on IV fluids to see if this does improve a heart rate response before begin rate control. Laboratories do show chronic kidney disease actually somewhat improved from the last time we have a creatinine check in 2017. Patient has seen her primary care physician, had negative stool studies but does have continued to have persistent diarrhea and refusal to drink or eat. Apparently she has been taking her medications per family. 06/24/18 21:30 I discussed this case with Dr. Benoit who is covering for Dr. Jo. Given the patient's persistent tachycardia we have elected to admit the patient for rehydration, possible rate control and further evaluation of her ongoing diarrhea and refusal to eat. 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
[2018-06-24] MEDS ORDERED: NORMAL SALINE 1000 ML 1,000 ML IV PRN (20:45)
[2018-06-24] MEDS ORDERED: (PENDING PHARMACY ID) (Melatonin/Pyridoxine Hcl (B6) [Melatonin 3 Mg Tablet] 1 EACH) PO SCH (22:00)
[2018-06-24] MEDS: MELATONIN 3 MG TABLET PO SCH (22:07)
[2018-06-24] MEDS ORDERED: DILTIAZEM HCL/D5W 125 MG/125 ML RTUINJ IV PRN (22:10)
[2018-06-24 22:14] LABS: APPEARANCE,URINE CLEAR; BILIRUBIN,URINE NEGATIVE (NEGATIVE); COLOR,URINE YELLOW; GLUCOSE, URINE NEGATIVE (NEGATIVE); KETONES,URINE NEGATIVE (NEGATIVE); LEUKOCYTE ESTERASE,URINE TRACE (NEGATIVE); NITRITE,URINE NEGATIVE (NEGATIVE); PROTEIN,URINE NEGATIVE (NEGATIVE); URINE SPECIFIC GRAVITY 1.012; UROBILINOGEN,URINE NEGATIVE mg/dL (<2.0)
[2018-06-24] MEDS ORDERED: DILTIAZEM HCL/D5W 125 MG/125 ML RTUINJ IV ONE (22:54)
[2018-06-25] MEDS ORDERED: LEVETIRACETAM 500 MG TABLET PO ONE ×2 (00:34→00:47)
[2018-06-25] MEDS: LEVETIRACETAM 500 MG TABLET PO SCH ×3 (00:54→23:33)
[2018-06-25 05:55] LABS: ABSOLUTE LYMPHOCYTES (AUTO) 1.7 10^3/uL (0.5-4.7); ABSOLUTE MONOCYTES (AUTO) 1.3 10^3/uL (0.1-1.4); ABSOLUTE NEUT (AUTO) 5.5 10^3/uL (1.7-8.2); BASOPHILS % (AUTO) 0.5 % (0-2); EOSINOPHILS % (AUTO) 0.2 % (0-6); HEMATOCRIT 37.7 % (36.0-47.0); HEMOGLOBIN 12.9 g/dL (12.0-15.5); LYMPHOCYTES % (AUTO) 20.1 % (13-45); MEAN CORPUSCULAR HGB CONC 34.2 g/dL (32.0-36.0); MEAN CORPUSCULAR VOLUME 79 fl (80-97); MONOCYTES % (AUTO) 14.9 % (3-13); PLATELET COUNT 188 10^3/uL (150-450); RED BLOOD COUNT 4.78 10^6/uL (3.72-5.28); SEGMENTED NEUTROPHILS % (AUTO) 64.3 % (42-78); TOTAL CELLS COUNTED % (AUTO) 100 %; WHITE BLOOD COUNT 8.6 10^3/uL (4.0-10.5)
[2018-06-25 06:09] LABS: ALANINE AMINOTRANSFERASE 12 U/L (9-52); ALBUMIN 3.2 g/dL (3.5-5.0); ALKALINE PHOSPHATASE 68 U/L (38-126); ANION GAP 12 (5-19); ASPARTATE AMINO TRANSFERASE 17 U/L (14-36); BILIRUBIN,DIRECT 0.3 mg/dL (0.0-0.4); BILIRUBIN,TOTAL 0.4 mg/dL (0.2-1.3); BLOOD UREA NITROGEN 42 mg/dL (7-20); CARBON DIOXIDE 26 mmol/L (22-30); CHLORIDE 112 mmol/L (98-107); GLUCOSE 105 mg/dL (75-110); POTASSIUM 3.5 mmol/L (3.6-5.0); SODIUM 150.4 mmol/L (137-145); TOTAL PROTEIN 7.6 g/dL (6.3-8.2)
[2018-06-25] MEDS: APIXABAN 5 MG TABLET PO SCH ×3 (09:33→17:24)
[2018-06-25] MEDS ORDERED: (PENDING PHARMACY ID) (Levetiracetam [Keppra] 1,000 MG) PO SCH (10:00)
[2018-06-25] MEDS: DILTIAZEM HCL 30 MG TABLET PO SCH ×2 (10:15→17:24)
[2018-06-25] MEDS ORDERED: DEXTROSE 5%-1/2 NORMAL SALINE 1,000 ML IV PRN (10:29)
--- NOTE | 2018-06-25 11:13 | RADIOLOGY REPORT (SQ) ---
EXAM DESCRIPTION: CT ABD/PELVIS NO ORAL OR IV COMPLETED DATE/TIME: 06/25/2018 10:53 am REASON FOR STUDY: abd pain COMPARISON: 02/10/2014 TECHNIQUE: CT scan of the abdomen and pelvis performed without intravenous or oral contrast. Images reviewed with lung, soft tissue, and bone windows. Reconstructed coronal and sagittal MPR images revi ewed. All images stored on PACS. All CT scanners at this facility use dose modulation, iterative reconstruction, and/or weight based d osing when appropriate to reduce radiation dose to as low as reasonably achievable (ALARA). [facility]: Dose Right [facility]: CareDose [facility]: Dose Right [facility]: Teradose 4D [facility]: Smart [employer] RADIATION DOSE: CT Rad equipment meets quality standard of care and radiation dose reduction techniq ues were employed. CTDIvol: 20.1 mGy. DLP: 1171 mGy-cm.mGy. LIMITATIONS: None. FINDINGS: LOWER CHEST: No significant findings. No nodules or infiltrates. NON-CONTRASTED LIVER, SPLEEN, ADRENALS: Evaluation limited by lack of IV contrast. No identified sign ificant masses. PANCREAS: No masses. No peripancreatic inflammatory changes. GALLBLADDER: No identified stones by CT criteria. No inflammatory changes to suggest cholecystitis. RIGHT KIDNEY AND URETER: No suspicious masses. Assessment limited by lack of IV contrast. No signif icant calcifications. No hydronephrosis or hydroureter. LEFT KIDNEY AND URETER: No suspicious masses. Assessment limited by lack of IV contrast. No signifi cant calcifications. No hydronephrosis or hydroureter. AORTA AND RETROPERITONEUM: No aneurysm. No retroperitoneal masses or adenopathy. BOWEL AND PERITONEAL CAVITY: No obvious masses or inflammatory changes. No free fluid. Diverticulosi s. APPENDIX: Normal. PELVIS, BLADDER, AND ABDOMINAL WALL:No abnormal masses. No free fluid. Bladder normal. BONES: No significant findings. OTHER: No other significant finding. IMPRESSION: Diverticulosis. No acute findings. COMMENT: Quality ID # [id number]: Final reports with documentation of one or more dose reduction techniques (e.g., Automated exposure control, adjustment of the mA and/or kV according to patient size, use of iterative reconstruction technique) TECHNICAL DOCUMENTATION: JOB ID: [id number] [employer]- All Rights Reserved Reading location - IP/workstation name: [email or web address]
[2018-06-25] MEDS: PANTOPRAZOLE SODIUM 40 MG VIAL IV SCH ×2 (12:03→23:33)
--- NOTE | 2018-06-25 12:26 | PDOC H&P ---
History of Present Illness Admission Date/PCP: 06/24/18 21:35 VERONIQUE JO MD Patient complains of: Generalized weakness not feeling well History of Present Illness: EDWINA MARIE is a 86 year old female This is a 86-year-old female with a history of significant stroke on the right- sided weakness history of the seizures disorder history of the chronic atrial fibrillation's brought to the emergency department by the son since last 2 weeks patient's unable to eat or drink According to the son patient went to see a Dr. Jo and diagnosed with the UTI and given some antibiotic and patient start developing the diarrhea in patients also check for the C. difficile was negative According to the son patient since the last 2 weeks not able to eat or drink much and according to the caregiver otherwise patient does not complain anything When I saw the patient's which I know very well pretty much alert awake denied any chest pain to than any shortness of the breath but not feeling well and not want to eat Patients took the medicines by the nursing staff Patient CT abdomen and pelvis was done which is negative for any acute abdominal pathology Patient's other than that initial workup was all stable except some mild dehydration's of the renal failure As per the son on the bedside and a caregiver will continues to current medications tinge to further evaluations Patient's heart rate was also noticed 120 range patient supposed to take the metoprolol 50 mg p.o. daily I am not sure was given yesterday or not Patient is currently on Eliquis Past Medical History Cardiac Medical History: Reports: Atrial Fibrillation, Hypertension Neurological Medical History: Reports: Ischemic CVA, Seizures Renal/ Medical History: Reports: Chronic Kidney Disease Musculoskeltal Medical History: Reports: Arthritis Psychiatric Medical History: Reports: Depression Hematology: Denies: Anemia Social History Lives with: Family Smoking Status: Never Smoker Frequency of Alcohol Use: None Hx Recreational Drug Use: No Drugs: None Hx Prescription Drug Abuse: No Family History Family History: Reviewed & Not Pertinent Parental Family History Reviewed: Yes Children Family History Reviewed: Yes Sibling(s) Family History Reviewed.: Yes Medication/Allergy Home Medications: Apixaban [Eliquis 5 mg Tablet] 5 mg PO Q12 06/25/18 Colchicine [Colcrys 0.6 mg Tablet] 0.6 mg PO DAILYP PRN 06/25/18 Doxepin HCl [Sinequan 25 mg Capsule] 25 mg PO QHS 06/25/18 Escitalopram Oxalate [Lexapro] 20 mg PO DAILY 06/25/18 Furosemide [Lasix 40 mg Tablet] 20 mg PO DAILY 06/25/18 Levetiracetam [Keppra] 1,000 mg PO Q12 06/25/18 Metoprolol Succinate [Toprol Xl 50 mg Tab.sr] 50 mg PO DAILY 06/25/18 Potassium Chloride [Klor-Con M10] 10 meq PO DAILY 06/25/18 Pramipexole Di-HCl [Pramipexole Dihydrochloride] 0.125 mg PO QHS 06/25/18 Spironolactone [Aldactone 25 mg Tablet] 25 mg PO DAILY 06/25/18 Valsartan/Hydrochlorothiazide [Valsartan-Hctz 320-25 mg Tab] 1 tab PO DAILY 03/05 Allergies/Adverse Reactions: No Known Allergies Allergy (Verified 06/24/18 17:35) Review of Systems Constitutional: PRESENT: fatigue, weakness. ABSENT: chills, fever(s), headache( s), weight gain, weight loss Eyes: ABSENT: visual disturbances Ears: ABSENT: hearing changes Cardiovascular: ABSENT: chest pain, dyspnea on exertion, edema, orthropnea, palpitations Respiratory: ABSENT: cough, hemoptysis Gastrointestinal: PRESENT: abdominal pain. ABSENT: constipation, diarrhea, hematemesis, hematochezia, nausea, vomiting Genitourinary: ABSENT: dysuria, hematuria Musculoskeletal: ABSENT: joint swelling Integumentary: ABSENT: rash, wounds Neurological: ABSENT: abnormal gait, abnormal speech, confusion, dizziness, focal weakness, syncope Psychiatric: ABSENT: anxiety, depression, homidical ideation, suicidal ideation Endocrine: ABSENT: cold intolerance, heat intolerance, menstrual abnormalities, polydipsia, polyuria Hematologic/Lymphatic: ABSENT: easy bleeding, easy bruising, lymphadenopathy Physical Exam Vital Signs: Temp Pulse Resp BP Pulse Ox 97.5 F 97 20 123/90 H 100 06/25/18 07:57 06/25/18 07:57 06/25/18 07:57 06/25/18 07:57 06/25/18 07:57 Intake & Output 06/24/18 06/25/18 06/26/18 06:59 06:59 06:59 Intake Total 1500 355 Balance 1500 355 Weight 91.7 kg General appearance: PRESENT: no acute distress, well-developed, well-nourished Head exam: PRESENT: atraumatic, normocephalic Eye exam: PRESENT: conjunctiva pink, EOMI, PERRLA. ABSENT: scleral icterus Ear exam: PRESENT: normal external ear exam Mouth exam: PRESENT: moist, tongue midline Neck exam: PRESENT: full ROM. ABSENT: carotid bruit, JVD, lymphadenopathy, thyromegaly Respiratory exam: PRESENT: clear to auscultation jesus manuel Cardiovascular exam: PRESENT: RRR. ABSENT: diastolic murmur, rubs, systolic murmur Pulses: PRESENT: normal dorsalis pedis pul, +2 pedal pulses bilateral Vascular exam: PRESENT: normal capillary refill GI/Abdominal exam: PRESENT: normal bowel sounds, soft. ABSENT: distended, guarding, mass, organolmegaly, rebound, tenderness Rectal exam: PRESENT: deferred Extremities exam: ABSENT: pedal edema Neurological exam: PRESENT: alert, awake, oriented to person, oriented to place , oriented to time. ABSENT: motor sensory deficit Additional comments: Right-sided old stroke weakness Psychiatric exam: PRESENT: appropriate affect, normal mood. ABSENT: homicidal ideation, suicidal ideation Skin exam: PRESENT: dry, intact, warm. ABSENT: cyanosis, rash Results Laboratory Results: 06/25/18 05:19 06/25/18 05:19 06/25/18 06/25/18 05:19 05:19 WBC 8.6 RBC 4.78 Hgb 12.9 Hct 37.7 MCV 79 L MCH 27.0 MCHC 34.2 RDW 16.0 H Plt Count 188 Seg Neutrophils % 64.3 Lymphocytes % 20.1 Monocytes % 14.9 H Eosinophils % 0.2 Basophils % 0.5 Absolute Neutrophils 5.5 Absolute Lymphocytes 1.7 Absolute Monocytes 1.3 Absolute Eosinophils 0.0 Absolute Basophils 0.0 Sodium 150.4 H Potassium 3.5 L Chloride 112 H Carbon Dioxide 26 Anion Gap 12 BUN 42 H Creatinine 1.26 H Est GFR ( Amer) 49 L Est GFR (Non-Af Amer) 40 L Glucose 105 Calcium 9.0 Total Bilirubin 0.4 AST 17 ALT 12 Alkaline Phosphatase 68 Total Protein 7.6 Albumin 3.2 L Impressions: Acute Abdomen Series 06/24/18 17:49 IMPRESSION: No acute finding. copyright 2011 [employer]- All Rights Reserved Abdomen/Pelvis CT 06/25/18 00:00 IMPRESSION: Diverticulosis. No acute findings. Assessment & Plan - Diagnosis (1) Renal failure Qualifiers: Renal failure chronicity: acute Is this a current diagnosis for this admission?: Yes Plan: Start the patient on IV fluid (2) Dehydration Is this a current diagnosis for this admission?: Yes Plan: Due to the poor p.o. 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 difficile (6) Depression Qualifiers: Depression Type: major depressive disorder Is this a current diagnosis for this admission?: Yes (7) Weakness Is this a current diagnosis for this admission?: Yes Plan: Will get the physical therapy evaluations - Time Time Spent: 30 to 50 Minutes Medications reviewed and adjusted accordingly: Yes Anticipated discharge: Home Within: Other - Inpatient Certification Based on my medical assessment, after consideration of the patient's comorbidities, presenting symptoms, or acuity I expect that the services needed warrant INPATIENT care.: Yes I certify that my determination is in accordance with my understanding of Medicare's requirements for reasonable and necessary INPATIENT services [42 CFR 412.3e].: Yes Medical Necessity: Significant Comorbidiites Make Outpatient Treatment Too Risky , Need For IV Fluids, Need For Continuous Telemetry Monitoring Post Hospital Care: D/C Senior Backup Administrator Documentation - Plan Summary Plan Summary: See other MD orders Discussed with the son regarding the patient's current conditions Continues to scissors medications Consult cardiology
[2018-06-25 14:09] LABS: ANION GAP 12 (5-19); BLOOD UREA NITROGEN 37 mg/dL (7-20); CALCIUM 9.1 mg/dL (8.4-10.2); CARBON DIOXIDE 25 mmol/L (22-30); CHLORIDE 113 mmol/L (98-107); GLUCOSE 120 mg/dL (75-110); POTASSIUM 3.7 mmol/L (3.6-5.0); SODIUM 149.5 mmol/L (137-145)
[2018-06-25] MEDS: MELATONIN 3 MG TABLET PO SCH (23:33)
[2018-06-26 06:51] LABS: ABSOLUTE LYMPHOCYTES (AUTO) 1.7 10^3/uL (0.5-4.7); ABSOLUTE MONOCYTES (AUTO) 0.7 10^3/uL (0.1-1.4); ABSOLUTE NEUT (AUTO) 4.2 10^3/uL (1.7-8.2); BASOPHILS % (AUTO) 0.4 % (0-2); EOSINOPHILS % (AUTO) 0.4 % (0-6); HEMATOCRIT 31.6 % (36.0-47.0); MEAN CORPUSCULAR HEMOGLOBIN 27.1 pg (27.0-33.4); MEAN CORPUSCULAR VOLUME 78 fl (80-97); PLATELET COUNT 173 10^3/uL (150-450); RED BLOOD COUNT 4.07 10^6/uL (3.72-5.28); RED CELL DISTRIBUTION WIDTH 16.2 % (11.5-14.0); SEGMENTED NEUTROPHILS % (AUTO) 62.2 % (42-78); TOTAL CELLS COUNTED % (AUTO) 100 %; WHITE BLOOD COUNT 6.7 10^3/uL (4.0-10.5)
[2018-06-26] MEDS: DILTIAZEM HCL 30 MG TABLET PO SCH ×3 (07:01→17:45)
[2018-06-26] MEDS: PANTOPRAZOLE SODIUM 40 MG VIAL IV SCH ×2 (09:45→22:54)
[2018-06-26] MEDS: APIXABAN 5 MG TABLET PO SCH ×2 (09:45→17:45)
[2018-06-26] MEDS: LEVETIRACETAM 500 MG TABLET PO SCH ×2 (09:46→22:54)
--- NOTE | 2018-06-26 11:30 | PDOC PROGRESS REPORT ---
Subjective Progress Note for:: 06/26/18 Subjective:: She does currently doing much better Patient's p.o. intake is still poor Patient CT abdomen and pelvis is all negative Patient's heart rate is under control Reason For Visit: DEHYDATION, AFIB WITH RVR Physical Exam Vital Signs: Temp Pulse Resp BP Pulse Ox 97.4 F 62 22 H 128/93 H 96 06/26/18 07:28 06/26/18 07:28 06/26/18 07:28 06/26/18 07:28 06/26/18 07:28 Intake & Output 06/25/18 06/26/18 06/27/18 06:59 06:59 06:59 Intake Total 4448 712 4255 Output Total 0 Balance 4115 362 5219 Weight 91.7 kg 91.2 kg General appearance: PRESENT: no acute distress, well-developed, well-nourished Head exam: PRESENT: atraumatic, normocephalic Eye exam: PRESENT: conjunctiva pink, EOMI, PERRLA. ABSENT: scleral icterus Ear exam: PRESENT: normal external ear exam Mouth exam: PRESENT: moist, tongue midline Neck exam: PRESENT: full ROM. ABSENT: carotid bruit, JVD, lymphadenopathy, thyromegaly Respiratory exam: PRESENT: clear to auscultation jesus manuel Cardiovascular exam: PRESENT: RRR. ABSENT: diastolic murmur, rubs, systolic murmur Pulses: PRESENT: normal dorsalis pedis pul, +2 pedal pulses bilateral Vascular exam: PRESENT: normal capillary refill GI/Abdominal exam: PRESENT: normal bowel sounds, soft. ABSENT: distended, guarding, mass, organolmegaly, rebound, tenderness Rectal exam: PRESENT: deferred Extremities exam: ABSENT: pedal edema Neurological exam: PRESENT: alert, awake, oriented to person, oriented to place , oriented to time, oriented to situation, CN II-XII grossly intact. ABSENT: motor sensory deficit Psychiatric exam: PRESENT: appropriate affect, normal mood. ABSENT: homicidal ideation, suicidal ideation Skin exam: PRESENT: dry, intact, warm. ABSENT: cyanosis, rash Results Laboratory Results: 06/26/18 06:07 06/25/18 13:28 06/25/18 06/26/18 13:28 06:07 WBC 6.7 RBC 4.07 Hgb 11.0 L Hct 31.6 L MCV 78 L MCH 27.1 MCHC 35.0 RDW 16.2 H Plt Count 173 Seg Neutrophils % 62.2 Lymphocytes % 26.0 Monocytes % 11.0 Eosinophils % 0.4 Basophils % 0.4 Absolute Neutrophils 4.2 Absolute Lymphocytes 1.7 Absolute Monocytes 0.7 Absolute Eosinophils 0.0 Absolute Basophils 0.0 Sodium 149.5 H Potassium 3.7 Chloride 113 H Carbon Dioxide 25 Anion Gap 12 BUN 37 H Creatinine 1.27 H Est GFR ( Amer) 49 L Est GFR (Non-Af Amer) 40 L Glucose 120 H Calcium 9.1 Impressions: Acute Abdomen Series 06/24/18 17:49 IMPRESSION: No acute finding. copyright 2010 [employer]- All Rights Reserved Abdomen/Pelvis CT 06/25/18 00:00 IMPRESSION: Diverticulosis. No acute findings. Assessment & Plan - Diagnosis (1) Renal failure Qualifiers: Renal failure chronicity: acute Is this a current diagnosis for this admission?: Yes Plan: Currently all improving (2) Dehydration Is this a current diagnosis for this admission?: Yes Plan: Due to the poor p.o. 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 difficile (6) Depression Qualifiers: Depression Type: major depressive disorder Is this a current diagnosis for this admission?: Yes (7) Weakness Is this a current diagnosis for this admission?: Yes - Time Time Spent with patient: 15-24 minutes Medications reviewed and adjusted accordingly: Yes Anticipated discharge: Home Within: Other - Plan Summary Plan Summary: Continue current medications discussed with the patient's family
[2018-06-26] MEDS: DEXTROSE 5%-1/2 NORMAL SALINE 1,000 ML IV PRN (17:45)
[2018-06-26] MEDS: MELATONIN 3 MG TABLET PO SCH (22:54)
[2018-06-27] MEDS: DILTIAZEM HCL 30 MG TABLET PO SCH ×3 (02:42→17:13)
[2018-06-27] MEDS: ACETAMINOPHEN 325 MG TABLET PO PRN ×3 (03:09→16:58)
[2018-06-27 07:02] LABS: ABSOLUTE LYMPHOCYTES (AUTO) 1.8 10^3/uL (0.5-4.7); ABSOLUTE MONOCYTES (AUTO) 0.8 10^3/uL (0.1-1.4); ABSOLUTE NEUT (AUTO) 3.9 10^3/uL (1.7-8.2); BASOPHILS % (AUTO) 0.5 % (0-2); EOSINOPHILS % (AUTO) 0.5 % (0-6); HEMATOCRIT 33.1 % (36.0-47.0); HEMOGLOBIN 11.5 g/dL (12.0-15.5); MEAN CORPUSCULAR HEMOGLOBIN 27.2 pg (27.0-33.4); MEAN CORPUSCULAR HGB CONC 34.6 g/dL (32.0-36.0); MEAN CORPUSCULAR VOLUME 78 fl (80-97); MONOCYTES % (AUTO) 12.8 % (3-13); PLATELET COUNT 152 10^3/uL (150-450); RED BLOOD COUNT 4.22 10^6/uL (3.72-5.28); RED CELL DISTRIBUTION WIDTH 16.1 % (11.5-14.0); SEGMENTED NEUTROPHILS % (AUTO) 59.2 % (42-78); TOTAL CELLS COUNTED % (AUTO) 100 %; WHITE BLOOD COUNT 6.6 10^3/uL (4.0-10.5)
[2018-06-27 07:28] LABS: ANION GAP 12 (5-19); BLOOD UREA NITROGEN 22 mg/dL (7-20); CALCIUM 8.4 mg/dL (8.4-10.2); CARBON DIOXIDE 23 mmol/L (22-30); CHLORIDE 110 mmol/L (98-107); GLUCOSE 100 mg/dL (75-110); POTASSIUM 3.3 mmol/L (3.6-5.0); SODIUM 144.5 mmol/L (137-145)
[2018-06-27] MEDS: PANTOPRAZOLE SODIUM 40 MG VIAL IV SCH (10:06)
[2018-06-27] MEDS: APIXABAN 5 MG TABLET PO SCH ×2 (10:06→17:12)
[2018-06-27] MEDS: LEVETIRACETAM 500 MG TABLET PO SCH (10:06)
[2018-06-27] MEDS ORDERED: METOPROLOL TARTRATE PF/INJ 5 MG/5 ML SDV IV ONE (10:18)
[2018-06-27] MEDS: DEXTROSE 5%-1/2 NORMAL SALINE 1,000 ML IV PRN (10:55)
[2018-06-27 16:55] VITALS: BP 107/75
[2018-06-27] MEDS ORDERED: COLCHICINE 0.6 MG TABLET PO PRN (18:14)
[2018-06-27] MEDS ORDERED: (PENDING PHARMACY ID) (Levetiracetam [Keppra] 1,000 MG) PO SCH (18:15)
[2018-06-27] MEDS ORDERED: (PENDING PHARMACY ID) (Valsartan/Hydrochlorothiazide [Valsartan-Hctz 320-25 Mg Tab] 1 TAB) PO SCH (18:15)
[2018-06-27] MEDS ORDERED: (PENDING PHARMACY ID) (Potassium Chloride [Klor-Con M10] 10 MEQ) PO SCH (18:15)
[2018-06-27] MEDS ORDERED: APIXABAN 5 MG TABLET PO SCH (19:00)
[2018-06-27] MEDS ORDERED: POTASSI CL 10 MEQ/D5-1/2NS 1L 10 MEQ/1,000 ML RTUINJ IV PRN (19:00)
[2018-06-27] MEDS ORDERED: METOPROLOL SUCCINATE 50 MG TAB.SR.24H PO SCH (19:00)
[2018-06-27] MEDS ORDERED: SPIRONOLACTONE 25 MG TABLET PO SCH (19:00)
[2018-06-27] MEDS ORDERED: VALSARTAN 160 MG TABLET PO SCH (19:30)
[2018-06-27] MEDS ORDERED: ESCITALOPRAM OXALATE 10 MG TABLET PO SCH (19:30)
[2018-06-27] MEDS ORDERED: HYDROCHLOROTHIAZIDE 25 MG TABLET PO SCH (19:30)
[2018-06-27] MEDS ORDERED: POTASSIUM CHLORIDE 10 MEQ CAPSULE.ER PO SCH (20:00)
--- NOTE | 2018-06-27 21:14 | PDOC DISCHARGE SUMMARY ---
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) Is this a current diagnosis for this admission?: Yes (4) Diarrhea Is this a current diagnosis for this admission?: Yes (6) Dehydration Is this a current diagnosis for this admission?: Yes - Additional Information Discharge Diet: Cardiac Discharge Activity: Activity As Tolerated, Balance Activity w/Rest Prescriptions: Metoprolol Succinate [Toprol Xl 50 mg Tab.sr] 100 mg PO DAILY #90 tab.sr.24h Home Medications: Apixaban [Eliquis 5 mg Tablet] 5 mg PO Q12 06/25/18 Colchicine [Colcrys 0.6 mg Tablet] 0.6 mg PO DAILYP PRN 06/25/18 Doxepin HCl [Sinequan 25 mg Capsule] 25 mg PO QHS 06/25/18 Escitalopram Oxalate [Lexapro] 20 mg PO DAILY 06/25/18 Levetiracetam [Keppra] 1,000 mg PO Q12 06/25/18 Pramipexole Di-HCl [Pramipexole Dihydrochloride] 0.125 mg PO QHS 06/25/18 Spironolactone [Aldactone 25 mg Tablet] 25 mg PO DAILY 06/25/18 Valsartan/Hydrochlorothiazide [Valsartan-Hctz 320-25 mg Tab] 1 tab PO DAILY 03/05 Acetaminophen [Tylenol 325 mg Tablet] 650 mg PO Q4HP PRN tablet 06/27/18 Metoprolol Succinate [Toprol Xl 50 mg Tab.sr] 100 mg PO DAILY #90 tab.sr.24h 05/05 History of Present Illness History of Present Illness: EDWINA MARIE is a 86 year old female, she has past medical history of advanced dementia, aphasia secondary to CVA she was brought to the emergency room on 06/24/2018 for evaluation of diarrhea, confusion, inadequate intake, in the emergency room she was found to be in atrial fibrillation with rapid ventricular response Hospital Course Hospital Course: She was treated with Cardizem infusion IV fluid for dehydration, she was admitted over the weekend when she presented with diarrhea, dehydration, inadequate intake, atrial fibrillation with rapid ventricular response.She also had hypokalemia due to GI losses, this was replenished.Patient is stable enough for discharge home today Physical Exam Vital Signs: Temp Pulse Resp BP Pulse Ox 97.6 F 68 17 107/75 100 06/27/18 18:55 06/27/18 18:55 06/27/18 18:55 06/27/18 15:19 06/27/18 18:55 Intake & Output 06/26/18 06/27/18 06/28/18 06:59 06:59 06:59 Intake Total 473 1277 1523 Output Total 0 Balance 473 1277 1523 Weight 91.2 kg 93.4 kg General appearance: PRESENT: no acute distress Head exam: PRESENT: atraumatic, normocephalic Eye exam: PRESENT: PERRLA Ear exam: PRESENT: normal external ear exam Neck exam: PRESENT: full ROM Respiratory exam: PRESENT: clear to auscultation jesus manuel Cardiovascular exam: PRESENT: RRR, +S1, +S2 Pulses: PRESENT: normal dorsalis pedis pul, +2 pedal pulses bilateral Vascular exam: PRESENT: normal capillary refill GI/Abdominal exam: PRESENT: normal bowel sounds, soft Rectal exam: PRESENT: deferred Neurological exam: PRESENT: alert Psychiatric exam: PRESENT: appropriate affect, normal mood Skin exam: PRESENT: dry, intact, warm Results Laboratory Results: 06/27/18 06:27 06/27/18 06:27 06/27/18 06/27/18 06:27 06:27 WBC 6.6 RBC 4.22 Hgb 11.5 L Hct 33.1 L MCV 78 L MCH 27.2 MCHC 34.6 RDW 16.1 H Plt Count 152 Seg Neutrophils % 59.2 Lymphocytes % 27.0 Monocytes % 12.8 Eosinophils % 0.5 Basophils % 0.5 Absolute Neutrophils 3.9 Absolute Lymphocytes 1.8 Absolute Monocytes 0.8 Absolute Eosinophils 0.0 Absolute Basophils 0.0 Sodium 144.5 Potassium 3.3 L Chloride 110 H Carbon Dioxide 23 Anion Gap 12 BUN 22 H Creatinine 0.95 Est GFR ( Amer) > 60 Est GFR (Non-Af Amer) 56 L Glucose 100 Calcium 8.4 Impressions: Acute Abdomen Series 06/24/18 17:49 IMPRESSION: No acute finding. copyright 2011 [employer]- All Rights Reserved Abdomen/Pelvis CT 06/25/18 00:00 IMPRESSION: Diverticulosis. No acute findings. Qualifiers - * PATIENT BEING DISCHARGED WITH ANY OF THE FOLLOWING DIAGNOSIS: No
[2018-06-27] MEDS ORDERED: (PENDING PHARMACY ID) (Pramipexole Di-Hcl [Pramipexole Dihydrochloride] 0.125 MG) PO SCH (22:00)
[2018-06-27] MEDS ORDERED: PRAMIPEXOLE DI-HCL 0.25 MG TABLET PO SCH (22:00)
--- NOTE | 2018-06-28 13:12 | EKG REPORT ---
SEVERITY:- ABNORMAL ECG - ATRIAL FIBRILLATION VENTRICULAR PREMATURE COMPLEX LEFT AXIS DEVIATION CONSIDER ANTEROSEPTAL INFARCT NONSPECIFIC T ABNORMALITIES, INFERIOR LEADS : Confirmed by: Corrine Ramos MD 28-Jun-2018 13:11:16
== END 2018-06-27 19:15 | disposition home or self-care (01) | DRG 641 ==
LOC: ER 17:35 → EH 21:35 → 3S 06-25 00:22
PROVIDERS: ADMIT Internal Medicine; ATTEND Internal Medicine
DX: E86.0 Dehydration (principal); E87.6 Hypokalemia; I48.2 Chronic atrial fibrillation; G40.909 Epilepsy, unspecified, not intractable, without status epilepticus; I12.9 Hypertensive chronic kidney disease with stage 1 through stage 4 chronic kidney disease, or unspecified chronic kidney disease; N18.9 Chronic kidney disease, unspecified; M19.90 Unspecified osteoarthritis, unspecified site; F32.9 Major depressive disorder, single episode, unspecified; F03.90 Unspecified dementia, unspecified severity, without behavioral disturbance, psychotic disturbance, mood disturbance, and anxiety; I69.320 Aphasia following cerebral infarction; Z79.02 Long term (current) use of antithrombotics/antiplatelets
CPT/HCPCS: 36415; 74022; 74176; 80048; 80053; 81001; 82962; 85025; 87086; 93005; 93010; 96374; 99285; G8978-GP; G8979-GP; J2405; J3490; J7030; S0164

== ENCOUNTER → 2019-02-15 | Outpatient (CLI) | payer MEDICARE, MEDICAID ==
--- NOTE | 2019-02-15 12:36 | RADIOLOGY REPORT (SQ) ---
EXAM DESCRIPTION: WRIST RIGHT 2 VIEWS COMPLETED DATE/TIME: 02/15/2019 12:24 pm REASON FOR STUDY: COUGH; PAIN IN RT ELBOW AND RT WRIST R05 COUGH M25.521 PAIN IN RIGHT ELBOW M25.5 31 PAIN IN RIGHT WRIST COMPARISON: None. NUMBER OF VIEWS: Three views. TECHNIQUE: AP, lateral, and oblique radiographic images acquired of the right wrist. LIMITATIONS: None. FINDINGS: MINERALIZATION: Normal. BONES: No acute fracture or dislocation. No worrisome bone lesions. Normal alignment. No significant osteophytes. JOINTS: No erosions. No nellie-articular osteopenia. No chondrocalcinosis. SOFT TISSUES: No swelling. No calcifications. OTHER: No other significant finding. IMPRESSION: NEGATIVE STUDY OF THE RIGHT WRIST. NO EXPLANATION FOR PAIN. TECHNICAL DOCUMENTATION: JOB ID: [id number] [employer]- All Rights Reserved Reading location - IP/workstation name: [email or web address]
--- NOTE | 2019-02-15 12:36 | RADIOLOGY REPORT (SQ) ---
EXAM DESCRIPTION: CHEST PA/LATERAL COMPLETED DATE/TIME: 02/15/2019 12:24 pm REASON FOR STUDY: COUGH; PAIN IN RT ELBOW AND RT WRIST COMPARISON: 05/10/2018 EXAM PARAMETERS: NUMBER OF VIEWS: two views TECHNIQUE: Digital Frontal and Lateral radiographic views of the chest acquired. RADIATION DOSE: NA LIMITATIONS: none FINDINGS: LUNGS AND PLEURA: No opacities, masses or pneumothorax. No pleural effusion. MEDIASTINUM AND HILAR STRUCTURES: No masses or contour abnormalities. HEART AND VASCULAR STRUCTURES: Heart size is stable. No failure. BONES: No acute findings. HARDWARE: None in the chest. OTHER: No other significant finding. IMPRESSION: NO SIGNIFICANT RADIOGRAPHIC FINDING IN THE CHEST. TECHNICAL DOCUMENTATION: JOB ID: [id number] [employer]- All Rights Reserved Reading location - IP/workstation name: [email or web address]
--- NOTE | 2019-02-15 12:37 | RADIOLOGY REPORT (SQ) ---
EXAM DESCRIPTION: ELBOW RT AP/LAT COMPLETED DATE/TIME: 02/15/2019 12:24 pm REASON FOR STUDY: COUGH; PAIN IN RT ELBOW AND RT WRIST R05 COUGH M25.521 PAIN IN RIGHT ELBOW M25.5 31 PAIN IN RIGHT WRIST COMPARISON: None. NUMBER OF VIEWS: Three views. TECHNIQUE: AP, lateral, and single oblique radiographic images acquired of the right elbow. LIMITATIONS: None. FINDINGS: MINERALIZATION: Normal. BONES: No acute fracture or dislocation. No worrisome bone lesions. JOINT: No effusion. SOFT TISSUES: No soft tissue swelling. No foreign body. OTHER: No other significant finding. IMPRESSION: NEGATIVE STUDY OF THE RIGHT ELBOW. NO RADIOGRAPHIC EVIDENCE OF ACUTE INJURY. TECHNICAL DOCUMENTATION: JOB ID: [id number] [employer]- All Rights Reserved Reading location - IP/workstation name: [email or web address]
== END ==
LOC: OD 11:39
PROVIDERS: ATTEND Internal Medicine
DX: M25.521 Pain in right elbow (principal); M25.531 Pain in right wrist; R05 Cough
CPT/HCPCS: 71046

== ENCOUNTER → 2019-05-18 | Outpatient (CLI) | payer MEDICARE, MEDICAID ==
--- NOTE | 2019-05-18 14:03 | RADIOLOGY REPORT (SQ) ---
EXAM DESCRIPTION: FOOT BILATERAL 2 VIEWS COMPLETED DATE/TIME: 05/18/2019 1:34 pm REASON FOR STUDY: IDIOPATHIC GOUT, RT ANKLE AND FOOT M10.071 IDIOPATHIC GOUT, RIGHT ANKLE AND FOOT COMPARISON: None. NUMBER OF VIEWS: Two views. TECHNIQUE: AP and lateral radiographic images acquired of the right and left foot. LIMITATIONS: None. FINDINGS: MINERALIZATION: Decreased. BONES: There is joint space loss, subchondral sclerosis and cystic change and irregular small margina l erosions involving the 1st MTP joint bilaterally. Additional mild degenerative changes at scattere d interphalangeal joints. No acute bony abnormality. Midfoot osteophytosis. Superior and plantar c alcaneal enthesophytes bilaterally. JOINTS: No dislocation. 1st MTP joint changes as above. Hallux valgus deformity. SOFT TISSUES: Vascular calcifications. No radiopaque foreign body. OTHER: No other significant finding. IMPRESSION: 1. No acute bony abnormality. 2. Degenerative changes at the 1st MTP joint with joint space loss, irregular erosions and subchondr al cystic change compatible with given history of gout. Mild associated soft tissue swelling. TECHNICAL DOCUMENTATION: JOB ID: [id number] [employer]- All Rights Reserved Reading location - IP/workstation name: [email or web address]
[2019-05-19 12:10] LABS: ABSOLUTE BASOPHILS # (AUTO) 0.1 10^3/uL (0.0-0.2); ABSOLUTE EOSINOPHILS # (AUTO) 0.1 10^3/uL (0.0-0.6); ABSOLUTE LYMPHOCYTES (AUTO) 1.8 10^3/uL (0.5-4.7); ABSOLUTE MONOCYTES (AUTO) 0.7 10^3/uL (0.1-1.4); ABSOLUTE NEUT (AUTO) 5.9 10^3/uL (1.7-8.2); BASOPHILS % (AUTO) 1.2 % (0-2); EOSINOPHILS % (AUTO) 1.7 % (0-6); HEMOGLOBIN 11.5 g/dL (12.0-15.5); LYMPHOCYTES % (AUTO) 21.1 % (13-45); MEAN CORPUSCULAR HEMOGLOBIN 27.7 pg (27.0-33.4); MEAN CORPUSCULAR HGB CONC 34.8 g/dL (32.0-36.0); MEAN CORPUSCULAR VOLUME 80 fl (80-97); MONOCYTES % (AUTO) 8.3 % (3-13); PLATELET COUNT 175 10^3/uL (150-450); RED BLOOD COUNT 4.14 10^6/uL (3.72-5.28); RED CELL DISTRIBUTION WIDTH 15.1 % (11.5-14.0); SEGMENTED NEUTROPHILS % (AUTO) 67.7 % (42-78); TOTAL CELLS COUNTED % (AUTO) 100 %; WHITE BLOOD COUNT 8.7 10^3/uL (4.0-10.5)
[2019-05-19 12:25] LABS: ALBUMIN 3.7 g/dL (3.5-5.0); ALKALINE PHOSPHATASE 82 U/L (38-126); ANION GAP 10 (5-19); ASPARTATE AMINO TRANSFERASE 21 U/L (14-36); BILIRUBIN,DIRECT 0.2 mg/dL (0.0-0.4); BILIRUBIN,TOTAL 0.8 mg/dL (0.2-1.3); BLOOD UREA NITROGEN 45 mg/dL (7-20); CALCIUM 9.1 mg/dL (8.4-10.2); CARBON DIOXIDE 25 mmol/L (22-30); CHLORIDE 105 mmol/L (98-107); CHOLESTEROL 177.82 mg/dL (0-200); GLUCOSE 79 mg/dL (75-110); POTASSIUM 4.1 mmol/L (3.6-5.0); TRIGLYCERIDES 106 mg/dL (<150); URIC ACID 11.7 mg/dL (2.5-7.5)
[2019-05-19 12:36] LABS: DIRECT LDL 114 mg/dL (<100)
[2019-05-19 12:40] LABS: FREE T4 (FREE THYROXINE) 1.18 ng/dL (0.78-2.19)
[2019-05-19 12:53] LABS: THYROID STIMULATING HORMONE 1.55 uIU/mL (0.47-4.68)
== END ==
LOC: OD 13:08
PROVIDERS: ATTEND Internal Medicine
DX: M10.071 Idiopathic gout, right ankle and foot (principal); I10 Essential (primary) hypertension
CPT/HCPCS: 36415; 80053; 80061; 84439; 84443; 84550; 85025

== ENCOUNTER 2019-10-09 11:39 | Observation (INO) | payer MEDICARE, MEDICAID ==
[2019-10-09] MEDS ORDERED: PHENYTOIN SODIUM INJ/PF 250 MG/5 ML SDV IV ONE (14:15)
[2019-10-09 14:24] LABS: HEMATOCRIT 28.4 % (36.0-47.0); HEMOGLOBIN 9.8 g/dL (12.0-15.5); MEAN CORPUSCULAR HEMOGLOBIN 28.5 pg (27.0-33.4); MEAN CORPUSCULAR HGB CONC 34.6 g/dL (32.0-36.0); MEAN CORPUSCULAR VOLUME 83 fl (80-97); PLATELET COUNT 171 10^3/uL (150-450); RED BLOOD COUNT 3.44 10^6/uL (3.72-5.28); RED CELL DISTRIBUTION WIDTH 17.1 % (11.5-14.0); WHITE BLOOD COUNT 8.6 10^3/uL (4.0-10.5)
[2019-10-09 14:34] LABS: ALBUMIN 3.2 g/dL (3.5-5.0); ALKALINE PHOSPHATASE 52 U/L (38-126); ANION GAP 9 (5-19); ASPARTATE AMINO TRANSFERASE 32 U/L (14-36); BILIRUBIN,TOTAL 0.7 mg/dL (0.2-1.3); BLOOD UREA NITROGEN 35 mg/dL (7-20); CALCIUM 8.7 mg/dL (8.4-10.2); CARBON DIOXIDE 24 mmol/L (22-30); CHLORIDE 111 mmol/L (98-107); GLUCOSE 85 mg/dL (75-110); POTASSIUM 4.4 mmol/L (3.6-5.0)
--- NOTE | 2019-10-09 14:46 | RADIOLOGY REPORT (SQ) ---
EXAM DESCRIPTION: CT HEAD WITHOUT COMPLETED DATE/TIME: 10/09/2019 2:34 pm REASON FOR STUDY: Seizure COMPARISON: 05/15/2017 TECHNIQUE: Axial images acquired through the brain without intravenous contrast. Images reviewed wit h bone, brain and subdural windows. Images stored on PACS. All CT scanners at this facility use dose modulation, iterative reconstruction, and/or weight based d osing when appropriate to reduce radiation dose to as low as reasonably achievable (ALARA). [facility]: Dose Right [facility]: CareDose [facility]: Dose Right [facility]: Teradose 4D [facility]: [employer] RADIATION DOSE: CT Rad equipment meets quality standard of care and radiation dose reduction techniq ues were employed. CTDIvol: NaN mGy. DLP: 0 mGy-cm.. LIMITATIONS: Significant motion artifact. FINDINGS: VENTRICLES: Stable. CEREBRUM: No hemorrhage. No midline shift. Similar appearance of left cerebral encephalomalacia can be cerebral white matter. No evidence for acute infarction. CEREBELLUM: No masses. No hemorrhage. No alteration of density. No evidence for acute infarction. EXTRA-AXIAL SPACES: No fluid collections. ORBITS AND GLOBE: No intra- or extraconal masses. Normal contour of globe without masses. CALVARIUM: No fracture. PARANASAL SINUSES: No fluid or mucosal thickening. SOFT TISSUES: No mass or hematoma. OTHER: No other significant finding. IMPRESSION: No acute findings identified.Significant motion artifact. EVIDENCE OF ACUTE STROKE: NO. TECHNICAL DOCUMENTATION: JOB ID: [id number] Quality ID # [id number]: Final reports with documentation of one or more dose reduction techniques (e.g., Au tomated exposure control, adjustment of the mA and/or kV according to patient size, use of iterative reconstruction technique) 2010 [employer]- All Rights Reserved Reading location - IP/workstation name: [email or web address]
[2019-10-09] MEDS ORDERED: (PENDING PHARMACY ID) (Simethicone [Gas-X] 125 MG) PO PRN (17:36)
[2019-10-09] MEDS ORDERED: (PENDING PHARMACY ID) (Irbesartan/Hydrochlorothiazide [Irbesartan-Hctz 300-12.5 Mg Tb] 1 E PO SCH (17:45)
[2019-10-09] MEDS ORDERED: SIMETHICONE 80 MG TAB.CHEW PO PRN (17:50)
[2019-10-09] MEDS: APIXABAN 5 MG TABLET PO SCH (18:14)
[2019-10-09] MEDS: ALLOPURINOL 100 MG TABLET PO SCH (18:14)
[2019-10-09] MEDS: METOPROLOL SUCCINATE 50 MG TAB.SR.24H PO SCH (18:14)
[2019-10-09] MEDS ORDERED: LEVETIRACETAM 500 MG TABLET PO SCH (18:30)
--- NOTE | 2019-10-09 19:37 | PDOC H&P ---
History of Present Illness Admission Date/PCP: 10/09/19 11:39 VERONIQUE JO MD History of Present Illness: EDWINA MARIE is a 88 year old female, She has a history of CVA with aphasia, she was recently admitted in an [facility] in [facility], she came to the office today for post hospital discharge follow-up evaluation, she was accompanied by the son to the office for evaluation. She had a witnessed seizure, it was clonic tonic seizure that lasted roughly about 5 to 10 minutes. She has a history of seizure, patient's son said the last time she had a seizure was over 2 years ago, she is supposedly adherent with anti-seizure medication, she is on Keppra for control of seizure. I felt because patient has not had a seizure for over 2 years and the fact that she is supposedly adherent with her seizure medication, she needed to be admitted into the hospital for observation. She was given a loading dose of Dilantin 1 g intravenously. The initial blood work that was done demonstrated elevated serum creatinine which suggest acute kidney injury, she is on furosemide and also spironolactone,Diuretic that potentially could be causing prerenal azotemia. Past Medical History Cardiac Medical History: Reports: Atrial Fibrillation, Hypertension Neurological Medical History: Reports: Ischemic CVA, Seizures Musculoskeltal Medical History: Reports: Arthritis Psychiatric Medical History: Reports: Depression Hematology: Denies: Anemia Social History Smoking Status: Never Smoker Frequency of Alcohol Use: None Hx Recreational Drug Use: No Drugs: None Hx Prescription Drug Abuse: No Family History Family History: Reviewed & Not Pertinent Parental Family History Reviewed: Yes Children Family History Reviewed: Yes Sibling(s) Family History Reviewed.: Yes Medication/Allergy Home Medications: RX: Apixaban [Eliquis 5 mg Tablet] 5 mg PO BID 06/25/18 RX: Doxepin HCl [Sinequan 25 mg Capsule] 25 mg PO QHS 06/25/18 RX: Levetiracetam [Keppra] 500 mg PO DAILY 06/25/18 RX: Pramipexole Di-HCl [Pramipexole Dihydrochloride] 0.125 mg PO QHS 06/25/18 RX: Spironolactone [Aldactone 25 mg Tablet] 25 mg PO Q2D 06/25/18 RX: Metoprolol Succinate [Toprol Xl 50 mg Tab.sr] 100 mg PO DAILY #90 tab.sr.24h 06/27/18 Allopurinol [Zyloprim 100 mg Tablet] 100 mg PO DAILY 10/09/19 Furosemide [Lasix 40 mg Tablet] 40 mg PO DAILY 10/09/19 Irbesartan/Hydrochlorothiazide [Irbesartan-Hctz 300-12.5 mg Tb] 1 each PO DAILY 10/09/19 Linaclotide [Linzess] 290 mcg PO DAILY 10/09/19 Metolazone [Zaroxolyn 2.5 Mg Tablet] 2.5 mg PO DAILY 10/09/19 Potassium Chloride [Klor-Con M10] 10 meq PO DAILY 10/09/19 Simethicone [Gas-X] 125 mg PO DAILYP PRN 10/09/19 Allergies/Adverse Reactions: No Known Allergies Allergy (Verified 06/24/18 17:35) Review of Systems ROS unobtainable: Other - Aphasia Physical Exam Vital Signs: Temp Pulse Resp BP Pulse Ox 98.2 F 103 H 20 127/94 H 96 10/09/19 15:58 10/09/19 15:58 10/09/19 15:58 10/09/19 15:58 10/09/19 15:58 Intake & Output 10/08/19 10/09/19 10/10/19 06:59 06:59 06:59 Weight 93.4 kg General appearance: PRESENT: no acute distress Eye exam: PRESENT: PERRLA Respiratory exam: PRESENT: clear to auscultation jesus manuel Cardiovascular exam: PRESENT: +S1, +S2 GI/Abdominal exam: PRESENT: soft Neurological exam: PRESENT: alert, motor sensory deficit, aphasic Results Laboratory Results: 10/09/19 13:38 10/09/19 13:38 10/09/19 10/09/19 13:38 13:38 WBC 8.6 RBC 3.44 L Hgb 9.8 L Hct 28.4 L MCV 83 MCH 28.5 MCHC 34.6 RDW 17.1 H Plt Count 171 Sodium 144.2 Potassium 4.4 Chloride 111 H Carbon Dioxide 24 Anion Gap 9 BUN 35 H Creatinine 2.37 H Est GFR ( Amer) 23 L Glucose 85 Calcium 8.7 Total Bilirubin 0.7 AST 32 Alkaline Phosphatase 52 Total Protein 7.0 Albumin 3.2 L Impressions: Head CT 10/09/19 00:00 IMPRESSION: No acute findings identified.Significant motion artifact. EVIDENCE OF ACUTE STROKE: NO. Assessment & Plan - Diagnosis (1) Status epilepticus Is this a current diagnosis for this admission?: Yes Plan: She has sustained seizure, witnessed in the office, clonic tonic type, CT head was done without contrast there was no hemorrhage, there was no midline shift she has left cerebral encephalomalacia no evidence of acute infarction, she is given a loading dose of Dilantin check Keppra level continue Keppra (2) Acute kidney injury Is this a current diagnosis for this admission?: Yes Plan: The blood work suggests acute kidney injury, kidney ultrasound is ordered to rule out post renal etiology and also to assess kidney size. She is on 2 diuretic potential etiology for prerenal azotemia. 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
[2019-10-09] MEDS: NORMAL SALINE 1000 ML 1,000 ML IV PRN (20:30)
[2019-10-09 20:59] LABS: APPEARANCE,URINE SLIGHTLY-CLOUDY; BILIRUBIN,URINE NEGATIVE (NEGATIVE); COLOR,URINE YELLOW; GLUCOSE, URINE NEGATIVE (NEGATIVE); KETONES,URINE NEGATIVE (NEGATIVE); LEUKOCYTE ESTERASE,URINE NEGATIVE (NEGATIVE); NITRITE,URINE NEGATIVE (NEGATIVE); PROTEIN,URINE 30 mg/dL (NEGATIVE); URINE SPECIFIC GRAVITY 1.014; UROBILINOGEN,URINE NEGATIVE mg/dL (<2.0)
[2019-10-09] MEDS: DOXEPIN HCL 25 MG CAPSULE PO SCH (21:56)
[2019-10-09] MEDS: LEVETIRACETAM 500 MG TABLET PO SCH (21:56)
[2019-10-09] MEDS: PRAMIPEXOLE DI-HCL 0.25 MG TABLET PO SCH (21:56)
[2019-10-09] MEDS ORDERED: (PENDING PHARMACY ID) (Pramipexole Di-Hcl [Pramipexole Dihydrochloride] 0.125 MG) PO SCH (22:00)
[2019-10-09] MEDS ORDERED: ACETAMINOPHEN 325 MG TABLET ONE (22:29)
[2019-10-10] MEDS: LEVETIRACETAM 500 MG TABLET PO SCH ×2 (05:15→17:01)
[2019-10-10] MEDS: ALLOPURINOL 100 MG TABLET PO SCH (10:16)
[2019-10-10] MEDS: HYDROCHLOROTHIAZIDE 12.5 MG TABLET PO SCH (10:16)
[2019-10-10] MEDS: LOSARTAN POTASSIUM 50 MG TABLET PO SCH (10:16)
[2019-10-10] MEDS: METOPROLOL SUCCINATE 50 MG TAB.SR.24H PO SCH (10:17)
[2019-10-10] MEDS: APIXABAN 5 MG TABLET PO SCH ×2 (10:17→17:01)
[2019-10-10] MEDS: ACETAMINOPHEN 325 MG TABLET PO PRN ×3 (10:33→22:40)
[2019-10-10 10:44] LABS: ABSOLUTE LYMPHOCYTES (AUTO) 1.2 10^3/uL (0.5-4.7); ABSOLUTE MONOCYTES (AUTO) 0.7 10^3/uL (0.1-1.4); ABSOLUTE NEUT (AUTO) 3.9 10^3/uL (1.7-8.2); BASOPHILS % (AUTO) 0.4 % (0-2); EOSINOPHILS % (AUTO) 0.6 % (0-6); HEMATOCRIT 29.9 % (36.0-47.0); HEMOGLOBIN 10.2 g/dL (12.0-15.5); LYMPHOCYTES % (AUTO) 19.8 % (13-45); MEAN CORPUSCULAR HEMOGLOBIN 28.5 pg (27.0-33.4); MEAN CORPUSCULAR HGB CONC 34.1 g/dL (32.0-36.0); MEAN CORPUSCULAR VOLUME 84 fl (80-97); MONOCYTES % (AUTO) 12.6 % (3-13); PLATELET COUNT 143 10^3/uL (150-450); RED BLOOD COUNT 3.59 10^6/uL (3.72-5.28); RED CELL DISTRIBUTION WIDTH 17.4 % (11.5-14.0); SEGMENTED NEUTROPHILS % (AUTO) 66.6 % (42-78); TOTAL CELLS COUNTED % (AUTO) 100 %; WHITE BLOOD COUNT 5.9 10^3/uL (4.0-10.5)
[2019-10-10 11:10] LABS: ALBUMIN 2.8 g/dL (3.5-5.0); ALKALINE PHOSPHATASE 52 U/L (38-126); ANION GAP 8 (5-19); ASPARTATE AMINO TRANSFERASE 24 U/L (14-36); BILIRUBIN,DIRECT 0.3 mg/dL (0.0-0.4); BILIRUBIN,TOTAL 0.5 mg/dL (0.2-1.3); BLOOD UREA NITROGEN 28 mg/dL (7-20); CALCIUM 8.3 mg/dL (8.4-10.2); CARBON DIOXIDE 22 mmol/L (22-30); CHLORIDE 114 mmol/L (98-107); GLUCOSE 84 mg/dL (75-110); POTASSIUM 3.5 mmol/L (3.6-5.0); TOTAL PROTEIN 6.4 g/dL (6.3-8.2)
--- NOTE | 2019-10-10 12:22 | RADIOLOGY REPORT (SQ) ---
EXAM DESCRIPTION: U/S RETROPERITON (RENAL/AORTA) COMPLETED DATE/TIME: 10/10/2019 12:01 pm REASON FOR STUDY: acute kidney injury D50.8 OTHER IRON DEFICIENCY ANEMIAS COMPARISON: None. TECHNIQUE: Dynamic and static grayscale images acquired of the kidneys and bladder and recorded on P ACS. Additional selected color Doppler and spectral images recorded. LIMITATIONS: None. FINDINGS: RIGHT KIDNEY: Normal size. Normal echogenicity. No solid or suspicious masses. No hydronep hrosis. No calcifications. LEFT KIDNEY: Normal size. Normal echogenicity. No solid or suspicious masses. No hydronephrosis. No calcifications. BLADDER: No masses. OTHER FINDINGS: No other significant finding. IMPRESSION: NORMAL RENAL AND BLADDER ULTRASOUND. TECHNICAL DOCUMENTATION: JOB ID: [id number] 2010 [employer]- All Rights Reserved Reading location - IP/workstation name: [email or web address]
[2019-10-10] MEDS: NORMAL SALINE 1000 ML 1,000 ML IV PRN (13:59)
[2019-10-10] MEDS: PRAMIPEXOLE DI-HCL 0.25 MG TABLET PO SCH (21:34)
[2019-10-10] MEDS: DOXEPIN HCL 25 MG CAPSULE PO SCH (21:34)
[2019-10-11] MEDS: LEVETIRACETAM 500 MG TABLET PO SCH (05:42)
[2019-10-11] MEDS: ACETAMINOPHEN 325 MG TABLET PO PRN (05:43)
[2019-10-11] MEDS: NORMAL SALINE 1000 ML 1,000 ML IV PRN (05:51)
--- NOTE | 2019-10-11 08:33 | PDOC DISCHARGE SUMMARY ---
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) Is this a current diagnosis for this admission?: Yes - Additional Information Discharge Activity: Activity As Tolerated Referrals: VERONIQUE JO MD [Primary Care Provider] - 10/23/19 10:15 am Prescriptions: RX: Levetiracetam [Keppra 500 mg Tablet] 1,000 mg PO Q12A #180 tablet Home Medications: RX: Apixaban [Eliquis 5 mg Tablet] 5 mg PO BID 06/25/18 RX: Doxepin HCl [Sinequan 25 mg Capsule] 25 mg PO QHS 06/25/18 RX: Pramipexole Di-HCl [Pramipexole Dihydrochloride] 0.125 mg PO QHS 06/25/18 RX: Metoprolol Succinate [Toprol Xl 50 mg Tab.sr] 100 mg PO DAILY #90 tab.sr.24h 06/27/18 RX: Allopurinol [Zyloprim 100 mg Tablet] 100 mg PO DAILY 10/09/19 RX: Furosemide [Lasix 40 mg Tablet] 40 mg PO DAILY 10/09/19 RX: Irbesartan/Hydrochlorothiazide [Irbesartan-Hctz 300-12.5 mg Tb] 1 each PO DAILY 10/09/19 RX: Linaclotide [Linzess] 290 mcg PO DAILY 10/09/19 RX: Potassium Chloride [Klor-Con M10] 10 meq PO DAILY 10/09/19 RX: Simethicone [Gas-X] 125 mg PO DAILYP PRN 10/09/19 RX: Levetiracetam [Keppra 500 mg Tablet] 1,000 mg PO Q12A #180 tablet 10/10/19 History of Present Illiness History of Present Illness: EDWINA MARIE is a 88 year old female, She has a history of CVA with aphasia, she was recently admitted in an [facility] in [facility], she came to the office today for post hospital discharge follow-up evaluation, she was accompanied by the son to the office for evaluation. She had a witnessed seizure, it was clonic tonic seizure that lasted roughly about 5 to 10 minutes. She has a history of seizure, patient's son said the last time she had a seizure was over 2 years ago, she is supposedly adherent with anti-seizure medication, she is on Keppra for control of seizure. I felt because patient has not had a seizure for over 2 years and the fact that she is supposedly adherent with her seizure medication, she needed to be admitted into the hospital for observation. She was given a loading dose of Dilantin 1 g intravenously. The initial blood work that was done demonstrated elevated serum creatinine which suggest acute kidney injury, she is on furosemide and also spironolactone,Diuretic that potentially could be causing prerenal azotemia. Hospital Course Hospital Course: Patient was admitted for the management of status epilepticus, she was treated with intravenous Dilantin, CT head was obtained, it was negative for any acute pathology it redemonstrated old cerebral infarction. Patient was admitted for observation she was also found to have acute kidney injury felt to be due to prerenal azotemia, she is on diuretic furosemide and also spironolactone, she was treated with IV fluid with improvement the serum creatinine from 2.37-1.76. Kidney ultrasound was obtained which was normal. It was felt that patient has optimized inpatient care, she is supposedly on Keppra 500 mg p.o. twice daily, the medication was adjusted to 1000 mg p.o. twice daily Physical Exam Vital Signs: Temp Pulse Resp BP Pulse Ox 98.6 F 52 L 18 128/66 H 95 10/11/19 07:48 10/11/19 07:48 10/11/19 07:48 10/11/19 07:48 10/11/19 07:48 Intake & Output 10/10/19 10/11/19 10/12/19 06:59 06:59 06:59 Intake Total 2100 Output Total 50 460 Balance -50 1640 Weight 89.3 kg 91.4 kg General appearance: PRESENT: no acute distress Eye exam: PRESENT: PERRLA Respiratory exam: PRESENT: clear to auscultation jesus manuel Cardiovascular exam: PRESENT: +S1, +S2 GI/Abdominal exam: PRESENT: soft Neurological exam: PRESENT: alert, motor sensory deficit Results Laboratory Results: WBC 5.9 10^3/uL (4.0-10.5) 10/10/19 10:15 RBC 3.59 10^6/uL (3.72-5.28) L 10/10/19 10:15 Hgb 10.2 g/dL (12.0-15.5) L 10/10/19 10:15 Hct 29.9 % (36.0-47.0) L 10/10/19 10:15 MCV 84 fl (80-97) 10/10/19 10:15 MCH 28.5 pg (27.0-33.4) 10/10/19 10:15 MCHC 34.1 g/dL (32.0-36.0) 10/10/19 10:15 RDW 17.4 % (11.5-14.0) H 10/10/19 10:15 Plt Count 143 10^3/uL (150-450) L 10/10/19 10:15 Lymph % (Auto) 19.8 % (13-45) 10/10/19 10:15 Thayer % (Auto) 12.6 % (3-13) 10/10/19 10:15 Eos % (Auto) 0.6 % (0-6) 10/10/19 10:15 Baso % (Auto) 0.4 % (0-2) 10/10/19 10:15 Absolute Neuts (auto) 3.9 10^3/uL (1.7-8.2) 10/10/19 10:15 Absolute Lymphs (auto) 1.2 10^3/uL (0.5-4.7) 10/10/19 10:15 Absolute Monos (auto) 0.7 10^3/uL (0.1-1.4) 10/10/19 10:15 Absolute Eos (auto) 0.0 10^3/uL (0.0-0.6) 10/10/19 10:15 Absolute Basos (auto) 0.0 10^3/uL (0.0-0.2) 10/10/19 10:15 Seg Neutrophils % 66.6 % (42-78) 10/10/19 10:15 Sodium 143.6 mmol/L (137-145) 10/10/19 10:15 Potassium 3.5 mmol/L (3.6-5.0) L 10/10/19 10:15 Chloride 114 mmol/L (98-107) H 10/10/19 10:15 Carbon Dioxide 22 mmol/L (22-30) 10/10/19 10:15 Anion Gap 8 (5-19) 10/10/19 10:15 BUN 28 mg/dL (7-20) H 10/10/19 10:15 Creatinine 1.76 mg/dL (0.52-1.25) H 10/10/19 10:15 Est GFR ( Amer) 33 (>60) L 10/10/19 10:15 Est GFR (MDRD) Non-Af 27 (>60) L 10/10/19 10:15 Glucose 84 mg/dL (75-110) 10/10/19 10:15 Calcium 8.3 mg/dL (8.4-10.2) L 10/10/19 10:15 Total Bilirubin 0.5 mg/dL (0.2-1.3) 10/10/19 10:15 Direct Bilirubin 0.3 mg/dL (0.0-0.4) 10/10/19 10:15 Neonat Total Bilirubin Not Reportable 10/10/19 10:15 Neonat Direct Bilirubin Not Reportable 10/10/19 10:15 Neonat Indirect Bili Not Reportable 10/10/19 10:15 AST 24 U/L (14-36) 10/10/19 10:15 ALT 13 U/L (<35) 10/10/19 10:15 Alkaline Phosphatase 52 U/L (38-126) 10/10/19 10:15 Total Protein 6.4 g/dL (6.3-8.2) 10/10/19 10:15 Albumin 2.8 g/dL (3.5-5.0) L 10/10/19 10:15 Urine Color YELLOW 10/09/19 20:20 Urine Appearance SLIGHTLY-CLOUDY 10/09/19 20:20 Urine pH 5.0 (5.0-9.0) 10/09/19 20:20 Ur Specific Girard 1.014 10/09/19 20:20 Urine Protein 30 mg/dL (NEGATIVE) H 10/09/19 20:20 Urine Glucose (UA) NEGATIVE mg/dL (NEGATIVE) 10/09/19 20:20 Urine Ketones NEGATIVE mg/dL (NEGATIVE) 10/09/19 20:20 Urine Blood LARGE (NEGATIVE) H 10/09/19 20:20 Urine Nitrite NEGATIVE (NEGATIVE) 10/09/19 20:20 Urine Bilirubin NEGATIVE (NEGATIVE) 10/09/19 20:20 Urine Urobilinogen NEGATIVE mg/dL (<2.0) 10/09/19 20:20 Ur Leukocyte Esterase NEGATIVE (NEGATIVE) 10/09/19 20:20 Urine RBC (Auto) 126 /HPF 10/09/19 20:20 U Hyaline Cast (Auto) 1 /LPF 10/09/19 20:20 Urine Bacteria (Auto) TRACE /HPF 10/09/19 20:20 Squamous Epi Cells Auto 6 /HPF 10/09/19 20:20 Urine Mucus (Auto) RARE /LPF 10/09/19 20:20 Urine Ascorbic Acid NEGATIVE (NEGATIVE) 10/09/19 20:20 Levetiracetam 17.4 ug/mL (10.0-40.0) 10/09/19 13:38 Impressions: Head CT 10/09/19 00:00 IMPRESSION: No acute findings identified.Significant motion artifact. EVIDENCE OF ACUTE STROKE: NO. Renal Ultrasound 10/10/19 00:00 IMPRESSION: NORMAL RENAL AND BLADDER ULTRASOUND. Stroke Is this a Stroke Patient?: No Acute Heart Failure - Is this a Heart Failure Patient?: No
[2019-10-11] MEDS: HYDROCHLOROTHIAZIDE 12.5 MG TABLET PO SCH (10:58)
[2019-10-11] MEDS: LOSARTAN POTASSIUM 50 MG TABLET PO SCH (10:58)
[2019-10-11] MEDS: APIXABAN 5 MG TABLET PO SCH (10:58)
[2019-10-11] MEDS: ALLOPURINOL 100 MG TABLET PO SCH (10:59)
[2019-10-11] MEDS: METOPROLOL SUCCINATE 50 MG TAB.SR.24H PO SCH (10:59)
[2019-10-11 12:54] VITALS: BP 139/69
== END 2019-10-11 13:30 | disposition home health service (06) ==
LOC: INTOOBSV 11:39 → 3S 11:39
PROVIDERS: ADMIT Internal Medicine; ATTEND Internal Medicine
DX: G40.901 Epilepsy, unspecified, not intractable, with status epilepticus (principal); N17.9 Acute kidney failure, unspecified; I48.20 Chronic atrial fibrillation, unspecified; I69.320 Aphasia following cerebral infarction; M19.90 Unspecified osteoarthritis, unspecified site; F32.9 Major depressive disorder, single episode, unspecified; I10 Essential (primary) hypertension; G93.89 Other specified disorders of brain; Z79.899 Other long term (current) drug therapy; Z79.01 Long term (current) use of anticoagulants
CPT/HCPCS: 36415 ×2; 87086; 80177; 85025; 85027; 80076; 80048; 80053; 81001; 76770; 70450; 92523; C1758; A9270 ×18; J1165; J7030 ×3; G0378; G0379; J3490

== ENCOUNTER 2019-10-20 17:18 | Emergency (ER) | payer MEDICARE, MEDICAID ==
--- NOTE | 2019-10-20 17:30 | ER Document Report ---
ED Medical Screen (RME) - General Chief Complaint: Won't Eat Stated Complaint: NOT EATING Time Seen by Provider: 10/20/19 17:25 Primary Care Provider: VERONIQUE JO MD [Primary Care Provider] - Follow up as needed Mode of Arrival: Wheelchair Information source: Relative - Son via phone Notes: Son reports Dr. Jo sent patient over here because she has not been eating for the past month and a half. Reports she is lost at least 20 pounds. Denies fever vomiting diarrhea. Reports bowel movement every now and then. Reports she eats a little bit but not that much. He also notes some blood between her legs. I have greeted and performed a rapid initial assessment of this patient. A comprehensive ED assessment and evaluation of the patient, analysis of test results and completion of the medical decision making process will be conducted by additional ED providers. TRAVEL OUTSIDE OF THE [place] 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
[2019-10-20 19:45] LABS: ABSOLUTE BASOPHILS # (AUTO) 0.1 10^3/uL (0.0-0.2); ABSOLUTE EOSINOPHILS # (AUTO) 0.1 10^3/uL (0.0-0.6); ABSOLUTE LYMPHOCYTES (AUTO) 1.4 10^3/uL (0.5-4.7); ABSOLUTE MONOCYTES (AUTO) 0.7 10^3/uL (0.1-1.4); ABSOLUTE NEUT (AUTO) 4.7 10^3/uL (1.7-8.2); BASOPHILS % (AUTO) 0.9 % (0-2); EOSINOPHILS % (AUTO) 1.9 % (0-6); HEMOGLOBIN 12.4 g/dL (12.0-15.5); LYMPHOCYTES % (AUTO) 19.8 % (13-45); MEAN CORPUSCULAR HEMOGLOBIN 28.7 pg (27.0-33.4); MEAN CORPUSCULAR HGB CONC 33.4 g/dL (32.0-36.0); MEAN CORPUSCULAR VOLUME 86 fl (80-97); MONOCYTES % (AUTO) 10.2 % (3-13); PLATELET COUNT 146 10^3/uL (150-450); RED CELL DISTRIBUTION WIDTH 17.9 % (11.5-14.0); SEGMENTED NEUTROPHILS % (AUTO) 67.2 % (42-78); TOTAL CELLS COUNTED % (AUTO) 100 %
[2019-10-20 19:51] LABS: APPEARANCE,URINE CLEAR; BILIRUBIN,URINE NEGATIVE (NEGATIVE); COLOR,URINE YELLOW; GLUCOSE, URINE NEGATIVE (NEGATIVE); KETONES,URINE NEGATIVE (NEGATIVE); LEUKOCYTE ESTERASE,URINE NEGATIVE (NEGATIVE); NITRITE,URINE NEGATIVE (NEGATIVE); PROTEIN,URINE NEGATIVE (NEGATIVE); URINE SPECIFIC GRAVITY 1.017; UROBILINOGEN,URINE NEGATIVE mg/dL (<2.0)
[2019-10-20 19:57] LABS: ALBUMIN 3.9 g/dL (3.5-5.0); ALKALINE PHOSPHATASE 85 U/L (38-126); ANION GAP 12 (5-19); ASPARTATE AMINO TRANSFERASE 36 U/L (14-36); BILIRUBIN,DIRECT 0.2 mg/dL (0.0-0.4); BILIRUBIN,TOTAL 0.5 mg/dL (0.2-1.3); BLOOD UREA NITROGEN 30 mg/dL (7-20); CALCIUM 9.4 mg/dL (8.4-10.2); CARBON DIOXIDE 21 mmol/L (22-30); CHLORIDE 113 mmol/L (98-107); GLUCOSE 96 mg/dL (75-110); POTASSIUM 4.1 mmol/L (3.6-5.0); TOTAL PROTEIN 8.1 g/dL (6.3-8.2)
[2019-10-20] MEDS ORDERED: NORMAL SALINE 500 ML IV ONE (20:12)
--- NOTE | 2019-10-20 20:40 | ER Document Report ---
ED General - General Chief Complaint: Won't Eat Stated Complaint: NOT EATING Time Seen by Provider: 10/20/19 17:25 Primary Care Provider: VERONIQUE JO MD [Primary Care Provider] - Follow up as needed Mode of Arrival: Wheelchair TRAVEL OUTSIDE OF THE [place] IN LAST 30 DAYS: No - HPI Notes: Patient is an 88-year-old female, sent into the emergency department for evaluation by primary care. Her son is the primary historian. Evidently the patient has stopped eating, she is barely drinking. There was some report of blood in her depends, concern for vaginal bleeding versus rectal bleeding. The patient has a history of dementia, and a significant fear of hospitals. She cries out and screams, which the patient's son says is not surprising. He states that she will be fine once he gets her home. - Related Data Allergies/Adverse Reactions: No Known Allergies Allergy (Verified 10/20/19 17:24) Past Medical History - General Information source: Relative - Son via phone - Social History Smoking Status: Unknown if Ever Smoked Family History: Reviewed & Not Pertinent Patient has suicidal ideation: No Patient has homicidal ideation: No - Past Medical History Cardiac Medical History: Reports: Hx Atrial Fibrillation, Hx Hypertension Denies: Hx Coronary Artery Disease, Hx Heart Attack Pulmonary Medical History: Denies: Hx Asthma, Hx Bronchitis, Hx COPD, Hx Pneumonia, Hx Tuberculosis Neurological Medical History: Reports: 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, Hx Seizures Renal/ Medical History: Denies: Hx Peritoneal Dialysis Musculoskeletal Medical History: Reports Hx Arthritis Psychiatric Medical History: Reports: Hx Depression Past Surgical History: Denies: Hx Pacemaker - Immunizations Immunizations up to date: Yes Hx Diphtheria, Pertussis, Tetanus Vaccination: Yes Review of Systems - Review of Systems -: Yes ROS unobtainable due to patient's medical condition Physical Exam - Vital signs Vitals: Temp Pulse Resp BP Pulse Ox 97.6 F 80 18 130/73 H 100 10/20/19 17:29 10/20/19 17:29 10/20/19 17:29 10/20/19 17:29 10/20/19 17:29 - Notes Notes: This is an 88-year-old female who appears her stated age. She intermittently cries out, points that her hand, where the IV is placed. She is redirectable, and is willing to cooperate with examiner. Has normocephalic and atraumatic, pupils are equal round reactive to light. Onychosis moist. Heart regular rate and rhythm, lungs are clear to station bilaterally. On is soft, nontender, normoactive bowel sounds. Genital and rectal exam is performed with EVETTE Armenta, present in the room. She has brown stool at the rectum without visible hemorrhoids. No easily palpable mass. She has trace discharge in the vaginal area, which looks like it may be blood, but the patient is very resistant to have this area examined in any way. Extremities without cyanosis or clubbing. Skin is warm and dry. Peripheral pulses are equal. Patient moves all 4 extremities spontaneously. Course - Re-evaluation Re-evalutation: 10/20/19 20:37 Patient presents to the emergency department for evaluation. She had laboratory investigations as ordered through triage. Her labs show mild hyponatremia, hyper chloremia, consistent with dehydration. She is given a small amount of IV fluids. Her urinalysis fails to reveal any significant dehydration otherwise, or any signs of infection. Her creatinine is mildly elevated, but this is actually better than her baseline. I talked at length with the patient's son. I explained to her that vaginal bleeding at this age with cancer until proven otherwise. Another family member, on the phone, stated that she did have an evaluation for this last year. I strongly encouraged him to follow-up with women's health to further evaluate for this. Also explained that, while dim inished appetite and excessive weight loss was worrisome, I did not have any reason to acutely admit her to the hospital. Certainly, this would cause her a marked increase in her agitation. Also, however, I recommended potential upper and lower endoscopy to evaluate for another possible reason. I also explained that, at her age and with her current mental state, it may be reasonable to not further track down what is causing her symptoms. They voiced understanding to this as well. At any rate, the patient is given a 500 cc bolus and discharged. She is to follow-up with Dr. David Purvis on Wednesday. Return to the ER with worsening. - Vital Signs Vital signs: Temp Pulse Resp BP Pulse Ox 97.8 F 80 15 130/85 H 100 10/20/19 21:45 10/20/19 21:45 10/20/19 21:45 10/20/19 21:45 10/20/19 21:45 - Laboratory Result Diagrams: 10/20/19 19:30 10/20/19 19:30 Laboratory results interpreted by me: 10/20/19 10/20/19 19:30 19:30 RDW 17.9 H Plt Count 146 L Sodium 146.2 H Chloride 113 H Carbon Dioxide 21 L BUN 30 H Creatinine 1.58 H Est GFR ( Amer) 38 L Est GFR (MDRD) Non-Af 31 L Discharge - Discharge Clinical Impression: Dehydration, Abnormal vaginal bleeding Condition: Stable Disposition: HOME, SELF-CARE Instructions: Dehydration ([facility]), Vaginal Bleeding ([facility]) Additional Instructions: Stay hydrated with small, frequent sips of fluids. She needs further evaluation, but I believe she is stable to have this done as an outpatient. Va ginal bleeding in her age group is very concerning, please follow-up with women's health as discussed. You should also discuss upper and lower endoscopy with her primary care provider. Follow-up with Dr. Jo next week. Return to the emergency department with worsening or new concerning symptoms of any sort. Referrals: VERONIQUE JO MD [Primary Care Provider] - Follow up as needed
[2019-10-20 22:19] VITALS: BP 130/85
== END 2019-10-20 21:45 | disposition home or self-care (01) ==
LOC: ER 17:18
DX: N93.8 Other specified abnormal uterine and vaginal bleeding (principal); E86.0 Dehydration; R63.0 Anorexia; F03.90 Unspecified dementia, unspecified severity, without behavioral disturbance, psychotic disturbance, mood disturbance, and anxiety; I69.351 Hemiplegia and hemiparesis following cerebral infarction affecting right dominant side; I48.91 Unspecified atrial fibrillation; I10 Essential (primary) hypertension
CPT/HCPCS: 99284; 96360; 36415; 85025; 80053; 81001; J7040

== ENCOUNTER 2020-01-04 14:00 | Emergency (ER) | payer MEDICARE, MEDICAID ==
--- NOTE | 2020-01-04 14:33 | ER Document Report ---
ED Medical Screen (RME) - General Stated Complaint: LESION ON FOOT Time Seen by Provider: 01/04/20 14:24 Primary Care Provider: VERONIQUE JO MD [Primary Care Provider] - Follow up as needed Notes: Patient is an 88-year-old female with history of peripheral vascular disease who presents the emergency department with a right foot ulcer. Patient saw the foot doctor today and foot doctor recommends that the patient start antibiotics. Exam: Foot ulcer noted to right lateral foot. 1+ pedal pulses noted. I have greeted and performed a rapid initial assessment of this patient. A comprehensive ED assessment and evaluation of the patient, analysis of test results and completion of medical decision making process will be conducted by an additional ED providers. TRAVEL OUTSIDE OF THE [place] 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, Hx Seizures Renal/ Medical History: Denies: Hx Peritoneal Dialysis Musculoskeltal Medical History: Reports Hx Arthritis Psychiatric Medical History: Reports: Hx Depression Past Surgical History: Denies: Hx Pacemaker - Immunizations Immunizations up to date: Yes Hx Diphtheria, Pertussis, Tetanus Vaccination: Yes Physical Exam - Vital signs Vitals: Temp Pulse Resp BP Pulse Ox 97.6 F 99 16 142/79 H 95 01/04/20 14:10 01/04/20 14:10 01/04/20 14:10 01/04/20 14:10 01/04/20 14:10 Course - Vital Signs Vital signs: Temp Pulse Resp BP Pulse Ox 97.6 F 99 16 142/79 H 95 01/04/20 14:10 01/04/20 14:10 01/04/20 14:10 01/04/20 14:10 01/04/20 14:10 Doctor's Discharge - Discharge Referrals: VERONIQUE JO MD [Primary Care Provider] - Follow up as needed
[2020-01-04] MEDS ORDERED: VANCOMYCIN HCL INJ 1000 MG VIAL IV ONE ×2 (14:34→17:30)
--- NOTE | 2020-01-04 15:45 | RADIOLOGY REPORT (SQ) ---
EXAM DESCRIPTION: FOOT RIGHT 2 VIEWS IMAGES COMPLETED DATE/TIME: 01/04/2020 3:31 pm REASON FOR STUDY: Eval osteomyelitis? COMPARISON: None. NUMBER OF VIEWS: Three views. TECHNIQUE: AP, lateral and oblique radiographic images acquired of the right foot. LIMITATIONS: None. FINDINGS: MINERALIZATION: Normal. BONES: No acute fracture or dislocation. Plantar and posterior calcaneal spurs. No worrisome bone l esions. JOINTS: Degenerative joint disease in the 1st metatarsal-phalangeal joint. SOFT TISSUES: No soft tissue swelling. No foreign body. OTHER: No other significant finding. IMPRESSION: Degenerative joint disease. Calcaneal spurs. No evidence of osteomyelitis. TECHNICAL DOCUMENTATION: JOB ID: [id number] 2010 [employer]- All Rights Reserved Reading location - IP/workstation name: [email or web address]
[2020-01-04 17:03] LABS: PROTHROMBIN TIME 15.3 SEC (11.4-15.4)
[2020-01-04 17:11] LABS: ALBUMIN 4.2 g/dL (3.5-5.0); ALKALINE PHOSPHATASE 97 U/L (38-126); ANION GAP 12 (5-19); ASPARTATE AMINO TRANSFERASE 28 U/L (14-36); BILIRUBIN,DIRECT 0.1 mg/dL (0.0-0.4); BILIRUBIN,TOTAL 0.7 mg/dL (0.2-1.3); BLOOD UREA NITROGEN 45 mg/dL (7-20); CALCIUM 9.4 mg/dL (8.4-10.2); CARBON DIOXIDE 26 mmol/L (22-30); CHLORIDE 99 mmol/L (98-107); GLUCOSE 99 mg/dL (75-110); POTASSIUM 3.6 mmol/L (3.6-5.0); TOTAL PROTEIN 8.6 g/dL (6.3-8.2)
[2020-01-04 17:57] LABS: HEMATOCRIT 30.1 % (36.0-47.0); HEMOGLOBIN 10.3 g/dL (12.0-15.5); MEAN CORPUSCULAR HGB CONC 34.2 g/dL (32.0-36.0); MEAN CORPUSCULAR VOLUME 85 fl (80-97); PLATELET COUNT 189 10^3/uL (150-450); RED BLOOD COUNT 3.56 10^6/uL (3.72-5.28); RED CELL DISTRIBUTION WIDTH 17.6 % (11.5-14.0); WHITE BLOOD COUNT 7.1 10^3/uL (4.0-10.5)
[2020-01-04] MEDS ORDERED: FUROSEMIDE INJ/PF 40 MG/4 ML SDV IV ONE (17:58)
[2020-01-04] MEDS ORDERED: CEFTRIAXONE 1 GM/D5W RTU 1 GM/50 ML RTUPB IV ONE (17:58)
--- NOTE | 2020-01-04 18:04 | ER Document Report ---
ED General - General Chief Complaint: Foot Injury Stated Complaint: LESION ON FOOT Time Seen by Provider: 01/04/20 14:24 Primary Care Provider: VERONIQUE CASH MD [Primary Care Provider] - Follow up as needed Notes: 88-year-old female presents emergency department from the junior engineer's office for a wound infection to her right foot. Patient has apparently had a open wound to the lateral aspect of her right foot for the past few weeks, family felt like it was getting bigger so they took her to see Dr. Sutherland at [facility] and she stated the patient should go to the emergency department to receive IV antibiotics. Family denies drainage, fever or lymphangitic streaking. Denies any known injury, states that 1 day "the skin just felt off" they also state that the patient's feet and legs have been swelling chronically for months but that Dr. Sutherland stated this probably is not helping her feet heal at all. They state that the swelling goes down every night and comes back every day. They have compression stockings and stated "I guess we should maybe try using them every day instead of every few days." No shortness of breath. Already takes Lasix, dosage unknown per family. TRAVEL OUTSIDE OF THE [place] IN LAST 30 DAYS: No - Related Data Allergies/Adverse Reactions: No Known Allergies Allergy (Verified 10/20/19 17:24) Past Medical History - General Information source: Relative - Patient has dementia, very poor historian, daughter gives history over the phone. 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 denies: Fever Cardiovascular: See HPI, Edema Respiratory: No symptoms reported. denies: Short of breath Musculoskeletal: See HPI Skin: See HPI -: Yes All other systems reviewed and negative Physical Exam - Vital signs Vitals: Temp 97.4 F 01/04/20 14:01 Interpretation: Hypertensive - Notes Notes: GENERAL: Awake, sitting up in the wheelchair, smiles, does not answer any questions beyond saying yes. HEAD: Normocephalic, atraumatic EYES: Pupils equal, round and reactive to light, extraocular movements intact. ENT: Oral mucosa moist, tongue midline. NECK: Full range of motion, supple, trachea midline. LUNGS: Clear to auscultation bilaterally, no wheezes, rales or rhonchi, no respiratory distress. HEART: Regular rate and rhythm, no murmurs, gallops, rubs. ABDOMEN: Soft, nontender, nondistended, bowel sounds present in all 4 quadrants. EXTREMITIES: Contractures of the right upper and lower extremity. Lateral aspect of right foot has an ulceration that is approximately 4 cm long by 2 cm wide, no drainage, no bleeding, no foul smell. No lymphangitic streaking. Very tender to palpation. No fluctuance. dorsalis pedis pulses 1/4 bilaterally. No cyanosis. 2+ pitting edema bilateral lower extremities to the level of the knees. NEUROLOGICAL: Alert, cannot answer any questions, speech is stuttering, identifies her granddaughter as her aunt. SKIN: Warm, Dry, ulcer as noted above to the right foot. Course - Re-evaluation Re-evalutation: 01/04/20 19:38 CBC does not show any leukocytosis but there is a mild anemia, there is no shift, CMP shows fairly chronic renal failure, lactic acid is normal, foot x-ray does not show any signs of osteomyelitis. Infected areas really very mild at this time, based off of recommendation from junior engineer we will give initial dose of IV antibiotics here, after discussions with Dr. Rm patient will then be discharged home on oral antibiotics, he will continue to follow-up in the office. Given the persistent swelling in the patient's feet she will be given 1 dose of IV Lasix here to help diurese her further and then continue her normal Lasix at home. Family was counseled about the importance of keeping her feet elevated and wearing compression stockings. - Vital Signs Vital signs: Temp Pulse Resp BP Pulse Ox 97.9 F 87 16 136/78 H 100 01/04/20 19:02 01/04/20 19:02 01/04/20 19:02 01/04/20 19:02 01/04/20 19:02 - Laboratory Result Diagrams: 01/04/20 17:26 01/04/20 16:35 Laboratory results interpreted by me: 01/04/20 01/04/20 16:35 17:26 RBC 3.56 L Hgb 10.3 L Hct 30.1 L RDW 17.6 H BUN 45 H Creatinine 1.40 H Est GFR ( Amer) 43 L Est GFR (MDRD) Non-Af 36 L Total Protein 8.6 H Discharge - Discharge Clinical Impression: Cellulitis of right foot, Peripheral edema Right foot ulcer Qualifiers: Non-pressure ulcer stage: with fat layer exposed Qualified Code(s): L97.512 - Non-pressure chronic ulcer of other part of right foot with fat layer exposed Condition: Stable Disposition: HOME, SELF-CARE Additional Instructions: Please take the antibiotics as directed until they are gone. Please continue to take your fluid pills as directed. Please discuss with Dr. Cash whether or not he thinks they may need to be increased. Prior to increasing these pills I strongly recommend that you try elevating her feet during the day and that you have her wear compression stockings all day long except when she is asleep at night. Please return for foul smell, drainage from the wound or fever. Please follow- up with Dr. Rm and Dr. Sutherland within the next week. Prescriptions: Sulfamethoxazole/Trimethoprim [Bactrim Ds Tablet] 1 each PO BID #14 tablet Cephalexin Monohydrate [Keflex 500 mg Capsule] 500 mg PO QID #28 capsule Referrals: VERONIQUE CASH MD [Primary Care Provider] - Follow up as needed
[2020-01-04 18:11] LABS: ABSOLUTE LYMPHOCYTES# (MANUAL) 1.5 10^3/uL (0.5-4.7); ABSOLUTE MONOCYTES # (MANUAL) 0.4 10^3/uL (0.1-1.4); BASOPHILS % (MANUAL) 0 % (0-2); EOSINOPHILS % (MANUAL) 5 % (0-6); LYMPHOCYTES % (MANUAL) 21 % (13-45); METAMYELOCYTES % (MANUAL) 1 % (0-1); MONOCYTES % (MANUAL) 5 % (3-13); SEGMENTED NEUTROPHILS % (MAN) 68 % (42-78); TOTAL CELLS COUNTED 100
[2020-01-04 18:16] LABS: POLYCHROMASIA 1+; TOXIC VACUOLATION PRESENT
[2020-01-04 18:17] LABS: ANISOCYTOSIS 1+; PLATELET COMMENT ADEQUATE; POIKILOCYTOSIS 2+; TARGET CELLS 2+
[2020-01-04 21:19] VITALS: BP 148/80
== END 2020-01-04 21:20 | disposition home or self-care (01) ==
LOC: ER 14:00
DX: L97.512 Non-pressure chronic ulcer of other part of right foot with fat layer exposed (principal); L03.115 Cellulitis of right lower limb; M19.071 Primary osteoarthritis, right ankle and foot; R60.9 Edema, unspecified; D64.9 Anemia, unspecified; I10 Essential (primary) hypertension; F03.90 Unspecified dementia, unspecified severity, without behavioral disturbance, psychotic disturbance, mood disturbance, and anxiety; Z79.899 Other long term (current) drug therapy
CPT/HCPCS: 99284; 96375; 96365; 96367; 36415; 87040; 83605; 85025; 85610; 80053; 73620; J1940; J3370; J0696

== ENCOUNTER 2020-01-12 12:00 | Day surgery (SDC) | payer MEDICARE, MEDICAID ==
[2020-01-12] MEDS ORDERED: EPINEPHRINE INJ 1 MG/10 ML DISP.SYRIN ONE (12:42)
[2020-01-12] MEDS ORDERED: PROPOFOL INJ 200 MG/20 ML VIAL IV ONE (14:43)
--- NOTE | 2020-01-12 15:06 | Operative Report ---
Operative Report DATE OF SURGERY: 01/12/20 Operative Report: Pre-op diagnosis: Anorexia and reflux Post-op diagnosis: Normal EGD Surgery: Esophagogastroduodenoscopy with biopsy Medications: As per anesthesia Tissue removed: Antral and gastric body biopsy for pathology Procedure: After informed consent obtained from patient, the throat was sprayed with Hurricane and conscious sedation was achieved. The upper endoscope was inserted into the esophagus under direct vision and advanced into the stomach. The duodenum was entered and examined to the second part. Endoscope was then slowly pulled out of the patient as the mucosa was examined into details. Patient tolerated procedure well. Findings Esophagus: Normal Z-line at: 40 cm Antrum: Normal Body: Normal Fundus: Normal Duodenum first part: Normal Duodenum second part: Normal Plan: Await pathology. OPERATION: .
[2020-01-12 15:47] VITALS: BP 133/79
== END 2020-01-12 15:40 | disposition home or self-care (01) ==
LOC: END 12:00
PROVIDERS: ATTEND Internal Medicine Gastroenterology
DX: K29.50 Unspecified chronic gastritis without bleeding (principal); K21.9 Gastro-esophageal reflux disease without esophagitis; R63.0 Anorexia; I67.89 Other cerebrovascular disease; E86.0 Dehydration; I10 Essential (primary) hypertension; I48.91 Unspecified atrial fibrillation; G40.909 Epilepsy, unspecified, not intractable, without status epilepticus; J45.909 Unspecified asthma, uncomplicated; M10.9 Gout, unspecified; E66.9 Obesity, unspecified; I50.9 Heart failure, unspecified; I69.851 Hemiplegia and hemiparesis following other cerebrovascular disease affecting right dominant side; Z99.3 Dependence on wheelchair; Z79.899 Other long term (current) drug therapy; Z79.01 Long term (current) use of anticoagulants
CPT/HCPCS: 43239; 88305 ×2; 00731; U0003; J2704; C9803; 731; 87635; J0171

== ENCOUNTER → 2020-01-29 | Outpatient (CLI) | payer MEDICARE, MEDICAID ==
--- NOTE | 2020-01-29 13:52 | RADIOLOGY REPORT (SQ) ---
EXAM DESCRIPTION: KUB/ABDOMEN (SINGLE VIEW) IMAGES COMPLETED DATE/TIME: 01/29/2020 1:40 pm REASON FOR STUDY: CONSTIPATION (K59.01), DIARRHEA (R19.7) K59.01 SLOW TRANSIT CONSTIPATION R19.7 D IARRHEA, UNSPECIFIED COMPARISON: 06/24/2018 NUMBER OF VIEWS: One view. TECHNIQUE: Supine radiographic image of the abdomen acquired. LIMITATIONS: None. FINDINGS: BOWEL GAS PATTERN: Normal bowel gas pattern. No dilated loops. CALCIFICATIONS: No suspicious calcifications. SOFT TISSUES: No gross mass or suggestion of organomegaly. HARDWARE: None in the abdomen. BONES: No acute fracture. No worrisome bone lesions. OTHER: No other significant finding. IMPRESSION: NO RADIOGRAPHIC EVIDENCE FOR ACUTE ABDOMINAL DISEASE. TECHNICAL DOCUMENTATION: JOB ID: [id number] 2010 [employer]- All Rights Reserved Reading location - IP/workstation name: [email or web address]
== END ==
LOC: RAD 13:17
PROVIDERS: ATTEND Internal Medicine Gastroenterology
DX: K59.01 Slow transit constipation (principal); R19.7 Diarrhea, unspecified
CPT/HCPCS: 74018

== ENCOUNTER → 2020-04-10 | Outpatient (CLI) | payer MEDICARE, MEDICAID ==
[2020-04-10 11:26] LABS: ABSOLUTE EOSINOPHILS # (AUTO) 0.1 10^3/uL (0.0-0.6); ABSOLUTE LYMPHOCYTES (AUTO) 1.6 10^3/uL (0.5-4.7); ABSOLUTE MONOCYTES (AUTO) 1.1 10^3/uL (0.1-1.4); ABSOLUTE NEUT (AUTO) 5.3 10^3/uL (1.7-8.2); BASOPHILS % (AUTO) 0.5 % (0-2); EOSINOPHILS % (AUTO) 1.1 % (0-6); HEMATOCRIT 36.5 % (36.0-47.0); HEMOGLOBIN 12.8 g/dL (12.0-15.5); LYMPHOCYTES % (AUTO) 19.8 % (13-45); MEAN CORPUSCULAR HEMOGLOBIN 27.7 pg (27.0-33.4); MEAN CORPUSCULAR VOLUME 79 fl (80-97); MONOCYTES % (AUTO) 13.8 % (3-13); PLATELET COUNT 162 10^3/uL (150-450); RED BLOOD COUNT 4.61 10^6/uL (3.72-5.28); RED CELL DISTRIBUTION WIDTH 17.4 % (11.5-14.0); SEGMENTED NEUTROPHILS % (AUTO) 64.8 % (42-78); TOTAL CELLS COUNTED % (AUTO) 100 %; WHITE BLOOD COUNT 8.1 10^3/uL (4.0-10.5)
[2020-04-10 11:53] LABS: ALBUMIN 4.1 g/dL (3.5-5.0); ALKALINE PHOSPHATASE 128 U/L (38-126); ANION GAP 14 (5-19); ASPARTATE AMINO TRANSFERASE 26 U/L (14-36); BILIRUBIN,DIRECT 0.3 mg/dL (0.0-0.4); BILIRUBIN,TOTAL 0.7 mg/dL (0.2-1.3); BLOOD UREA NITROGEN 80 mg/dL (7-20); C-REACTIVE PROTEIN 20.1 mg/L (<10.0); CALCIUM 9.4 mg/dL (8.4-10.2); CARBON DIOXIDE 27 mmol/L (22-30); CHLORIDE 96 mmol/L (98-107); GLUCOSE 100 mg/dL (75-110); POTASSIUM 3.9 mmol/L (3.6-5.0); TOTAL PROTEIN 8.7 g/dL (6.3-8.2)
[2020-04-10 12:15] LABS: ERYTHROCYTE SEDIMENTATION RATE 75 mm/hr (0-30)
--- NOTE | 2020-04-10 12:26 | RADIOLOGY REPORT (SQ) ---
EXAM DESCRIPTION: FOOT RIGHT COMPLETE IMAGES COMPLETED DATE/TIME: 04/10/2020 11:02 am REASON FOR STUDY: NON-PRS CHRONIC ULCER OTH PRT RIGHT FOOT W FAT LAYER EXPOSED L97.512 NON-PRS CHIEF KNOWLEDGE OFFICER JAMIE ULCER OTH PRT RIGHT FOOT W FAT LAYER L97.522 NON-PRS CHRONIC ULCER OTH PRT LEFT FOOT W FAT LAYER COMPARISON: 01/04/2020 NUMBER OF VIEWS: Three views. TECHNIQUE: AP, lateral and oblique radiographic images acquired of the right foot. LIMITATIONS: None. FINDINGS: MINERALIZATION: Normal. BONES: No acute fracture or dislocation. No evidence of osteomyelitis.Plantar and posterior calcanea l spurs are present. JOINTS: Degenerative joint changes in the 1st metatarsal-phalangeal joint. There is narrowing of the joint space. Marginal osteophyte, subchondral cysts. SOFT TISSUES: No soft tissue swelling. No foreign body. OTHER: No other significant finding. 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 Calcaneal spurs. No evidence of osteomyelitis. TECHNICAL DOCUMENTATION: JOB ID: [id number] 2010 [employer]- All Rights Reserved Reading location - IP/workstation name: [email or web address]
--- NOTE | 2020-04-10 12:33 | RADIOLOGY REPORT (SQ) ---
EXAM DESCRIPTION: FOOT LEFT COMPLETE IMAGES COMPLETED DATE/TIME: 04/10/2020 11:02 am REASON FOR STUDY: NON-PRS CHRONIC ULCER OTH PRT LEFT FOOT W FAT LAYER EXPOSED L97.512 NON-PRS CHRON IC ULCER OTH PRT RIGHT FOOT W FAT LAYER L97.522 NON-PRS CHRONIC ULCER OTH PRT LEFT FOOT W FAT LAYER COMPARISON: None. NUMBER OF VIEWS: Three views. TECHNIQUE: AP, lateral and oblique radiographic images acquired of the left foot. LIMITATIONS: None. FINDINGS: MINERALIZATION: Normal. BONES: No acute fracture or dislocation. Plantar and posterior calcaneal spurs. There is mild sublu xation of the 1st metatarsal-phalangeal joint seen on the oblique view. JOINTS: There are marginal erosions at the 1st metatarsal-phalangeal joint. SOFT TISSUES: No soft tissue swelling. No foreign body. OTHER: No other significant finding. IMPRESSION: Degenerative joint disease. No evidence of osteomyelitis. Calcaneal spurs. TECHNICAL DOCUMENTATION: JOB ID: [id number] 2010 [employer]- All Rights Reserved Reading location - IP/workstation name: [email or web address]
== END ==
LOC: WC 10:14
PROVIDERS: ATTEND Nurse Practitioner Family
DX: L97.512 Non-pressure chronic ulcer of other part of right foot with fat layer exposed (principal); L97.522 Non-pressure chronic ulcer of other part of left foot with fat layer exposed
CPT/HCPCS: 36415; 80053; 85025; 85652; 86140

== ENCOUNTER → 2020-04-10 | Outpatient (CLI) | payer MEDICARE, MEDICAID ==
--- NOTE | 2020-04-10 12:40 | RADIOLOGY REPORT (SQ) ---
EXAM DESCRIPTION: ARTERIAL LOWER EXTREM BILAT IMAGES COMPLETED DATE/TIME: 04/10/2020 10:26 am REASON FOR STUDY: RT FOOT ULCER L97.512 NON-PRS CHRONIC ULCER OTH PRT RIGHT FOOT W FAT LAYER COMPARISON: None. TECHNIQUE: Dynamic and static sal scale and color images acquired of the lower extremity arteries. Additional selected spectral images recorded. ABIs recorded. LIMITATIONS: Patient was uncooperative throughout the exam. FINDINGS: RIGHT LEG: ABIS: Could not be performed. The patient was uncooperative. INFLOW ARTERIES: Normal, no obstruction evident. FEMORAL ARTERIES:Multiphasic waveforms. Normal, no velocity elevation to suggest focal stenosis. Norm al color Doppler evaluation. No aneurysm. POPLITEAL ARTERY:Multiphasic waveforms. Normal, no velocity elevation to suggest focal stenosis. Norm al color Doppler evaluation. No aneurysm. PATENT TIBIOPERONEAL TRUNK AND 3 VESSEL RUNOFF: Patent anterior tibial and posterior tibial arteries. TBI: Not performed. OTHER: Atherosclerotic change throughout. LEFT LEG: ABIS: Could not be performed as above. INFLOW ARTERIES: Normal, no obstruction evident. FEMORAL ARTERIES:Multiphasic waveforms. Normal, no velocity elevation to suggest focal stenosis. Norm al color Doppler evaluation. No aneurysm. POPLITEAL ARTERY:Multiphasic waveforms. Normal, no velocity elevation to suggest focal stenosis. Norm al color Doppler evaluation. No aneurysm. PATENT TIBIOPERONEAL TRUNK AND 3 VESSEL RUNOFF: Patent anterior tibial and posterior tibial arteries. There is poor flow in the anterior tibial artery with low flow volumes throughout. Retrograde flow is noted in the distal anterior tibial artery. TBI: Not performed. OTHER: Diffuse atherosclerotic change. IMPRESSION: Asymmetric left infrapopliteal disease. No high-grade stenosis. COMMENT: [facility] NORMAL: Greater than 1.0 MINIMAL DISEASE: 0.9 to 1.0 CLAUDICATION: 0.5 to 0.9 SEVERE ARTERIAL DISEASE: Less than 0.5 [facility] NORMAL: Greater than 1.0 (1.2 If Heavy Calcifications) NORMAL TO MILD ISCHEMIA: 0.8 to 1.0 MODERATE ISCHEMIA: 0.4 to 0.8 SEVERE ISCHEMIA: Less than 0.4 TECHNICAL DOCUMENTATION: JOB ID: [id number] 2010 [employer]- All Rights Reserved Reading location - IP/workstation name: [email or web address]
== END ==
LOC: SP 08:31
PROVIDERS: ATTEND Nurse Practitioner Family
DX: L97.512 Non-pressure chronic ulcer of other part of right foot with fat layer exposed (principal); L97.522 Non-pressure chronic ulcer of other part of left foot with fat layer exposed
CPT/HCPCS: 93925

== ENCOUNTER 2020-08-14 19:57 | Emergency (ER) | payer MEDICARE, MEDICAID ==
--- NOTE | 2020-08-14 20:13 | ER Document Report ---
ED Seizure - General Chief Complaint: Probable Seizure Stated Complaint: POSSIBLE SEIZURE Time Seen by Provider: 08/14/20 20:12 Primary Care Provider: MIGUEL GONZALEZ PA-C [Primary Care Provider] - Follow up as needed Mode of Arrival: Medic Information source: Relative Notes: PRIOR NOTE from SACHI Cronin - Last Filed: 05/15/17 23:24> Time Seen by Provider: 05/15/17 14:39 Patient is an 86 year old female presenting to the emergency department with family members for possible seizure. Patient was recently admitted for observat ion due to possible dehydration and joint pain. Patient was discharged from the hospital yesterday after she was hydrated with IV fluids. Patient has a home health aid during the day who stated that she was shaking some and also had some foaming at the mouth. Patient has a history of seizures and her last one was about 2-3 months ago. Patient has had a lack of appetite, poor fluid intake, and missed her medications today which include: Keppra 1000 mg, Eliquis 5 mg, valsartan 320 25 mg, amlodipine 10 mg, and escitalopram 20 mg. Patient is not acting at baseline and is non-verbal. Relatives state that the patient was agitated this morning. 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 08/14/20 20:11 - ED Nursing Note by RONNA ALCALA [facility] Num: [id number] : 10/08/1931 Patient Age: 88 pt brought in by ems for probable seizure witnessed by family. when ems arrived pt was at base line. pt alert and orientedx1 family denies pt hitting head. MY NOTES 88-year-old black female arrives by EMS after her son Dakota came home this evening and found his mother with her mouth drooping on the right side. Patient has a history of dementia and is status post CVA in the past. He reports she has been having constipation for the last 48 hours and therefore he gave her some milk of magnesia yesterday evening without any results of passing bowels. Patient is a poor historian and indeed does not talk at all to me or to her son. Her son is the sole historian and he appears to be a fair historian. He is on the phone with his sister Layne at the time and I spoke with her and with Dakota for the patient's history. Patient has also has a history of stasis dermatitis and has right greater than leg leg edema with left lower leg with distal stasis dermatitis and the right leg is diffusely stasis dermatitis to her right leg from tibial tuberosity to her ankle and foot. Her son reports she has had a negative Covid last week. No one in the family has any Covid or influenza. Her son does not have a mask on nor does the patient. I advised him that this facility has multiple people with Covid and will need a mask. He advises me that the patient has not had any cough fever chills diaphoresis nausea vomiting diarrhea but does admit to the constipation. He denies any dysuria. Patient's prior history includes aphasia following CVA gout atrial fibrillation with RVR question of seizure below the extremities wounds and has been followed in the past by Dr. Cy Cash and Gabrielle Jara - Related Data Allergies/Adverse Reactions: No Known Allergies Allergy (Verified 01/12/20 13:03) Past Medical History - General Information source: Relative - Social History Smoking Status: Never Smoker Cigarette use (# per day): No Chew tobacco use (# tins/day): No Smoking Education Provided: No Frequency of alcohol use: None Drug Abuse: None Lives with: Family Family History: Reviewed & Not Pertinent Patient has suicidal ideation: No Patient has homicidal ideation: No - Past Medical History Cardiac Medical History: Reports: Hx Atrial Fibrillation, Hx Hypertension Denies: Hx Coronary Artery Disease, Hx Heart Attack Pulmonary Medical History: Denies: Hx Asthma, Hx Bronchitis, Hx COPD, Hx Pneumonia, Hx Tuberculosis Neurological Medical History: Reports: 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, Hx Seizures Renal/ Medical History: Denies: Hx Peritoneal Dialysis Musculoskeletal Medical History: Reports Hx Arthritis Psychiatric Medical History: Reports: Hx Depression Past Surgical History: Denies: Hx Pacemaker - Immunizations Immunizations up to date: Yes Hx Diphtheria, Pertussis, Tetanus Vaccination: Yes Review of Systems - Review of Systems Constitutional: See HPI, Weakness EENT: No symptoms reported Cardiovascular: No symptoms reported Respiratory: No symptoms reported Gastrointestinal: See HPI, Constipation Genitourinary: No symptoms reported Female Genitourinary: No symptoms reported Musculoskeletal: No symptoms reported Skin: No symptoms reported Hematologic/Lymphatic: No symptoms reported Neurological/Psychological: See HPI, Confusion, Weakness -: Yes All other systems reviewed and negative Physical Exam - Vital signs Vitals: Temp 98.8 F 08/14/20 19:58 Interpretation: Normal - General General appearance: Appears well, Alert - HEENT Head: Normocephalic, Atraumatic Eyes: Normal Pupils: PERRL - Respiratory Respiratory status: No respiratory distress Chest status: Nontender Breath sounds: Normal Chest palpation: Normal - Cardiovascular Rhythm: Regular Heart sounds: Normal auscultation Murmur: No - Abdominal Inspection: Normal Distension: No distension Bowel sounds: Normal Tenderness: Nontender Organomegaly: No organomegaly - Rectal Hemorrhoids: Other - Deferred - Genitourinary Bimanuel exam: Other - Deferred - Back Back: Normal, Nontender - Extremities General upper extremity: Normal inspection, Nontender, Normal color, Normal ROM, Normal temperature General lower extremity: Normal inspection, Nontender, Normal color, Normal ROM, Normal temperature, Normal weight bearing. No: Amalia's sign - Neurological Neuro grossly intact: Yes Cognition: Normal Orientation: AAOx4 Michela Coma Scale Eye Opening: Spontaneous Michela Coma Scale Verbal: Oriented Michela Coma Scale Motor: Obeys Commands [place] Coma Scale Total: 15 Speech: Normal Motor strength normal: LUE, RUE, LLE, RLE Sensory: Normal - Psychological Associated symptoms: Confused, Flat affect - Skin Skin Temperature: Warm Skin Moisture: Dry Skin Color: Other - Stasis dermatitis right greater than left leg with pitting edema +1 bilaterally Course - Vital Signs Vital signs: Temp Pulse Resp BP Pulse Ox 98.8 F 15 130/72 H 100 08/14/20 19:58 08/14/20 21:13 08/14/20 20:03 08/14/20 21:13 - Laboratory Results Result Diagrams: 08/14/20 22:08 08/14/20 22:08 Laboratory Results Interpreted: 08/14/20 08/14/20 22:08 22:08 RBC 3.61 L Hgb 9.9 L Hct 28.9 L RDW 17.5 H Lymph % (Auto) 10.6 L [place] % (Auto) 13.7 H Potassium 3.1 L BUN 37 H Est GFR ( Amer) 57 L Est GFR (MDRD) Non-Af 47 L Albumin 3.4 L Critical Laboratory Results Reviewed: Yes Attending or Supervising Physician who Reviewed Labs: KAI DAY JR - Radiology Results Radiology Results Interpreted: 08/14/20 23:19 Please note radiology reveals no significant acute finding to CT of head. Old left parietal infarct per Dr. Ontiveros chest x-ray NAD and KUB reveals colonic fecal load. 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 Take lactulose by mouth daily as needed for constipation. Prescriptions: Amitriptyline HCl [Elavil 25 mg Tablet] 25 mg PO QHS #30 tablet Lactulose [Cephulac Syrup 20 gm/30 ml Udcup] 20 gm PO DAILY PRN #300 ml PRN Reason: constipation Potassium Chloride 10 meq PO DAILY #10 tablet.er Referrals: MIGUEL GONZALEZ PA-C [Primary Care Provider] - Follow up as needed
[2020-08-14] MEDS ORDERED: TRAZODONE HCL 50 MG TABLET PO ONE (20:23)
[2020-08-14] MEDS ORDERED: MIDAZOLAM 2 MG/2 ML INJ IM ONE (20:23)
--- NOTE | 2020-08-14 21:34 | RADIOLOGY REPORT (SQ) ---
EXAM DESCRIPTION: ACUTE ABDOMEN SERIES 08/14/2020 8:25 PM CAREER SERVICES DIRECTOR CLINICAL HISTORY: 88 years Female, constipation change in ms; ; COMPARISON: Prior CT dated 06/25/2018 FINDINGS: 4 views were obtained. Gas and a moderate amount of stool are noted throughout the large bowel. Scattered nondilated loops of small bowel are visible throughout the abdomen. No subdiaphragmatic free air is appreciated. No suspicious soft tissue calcifications. Mild bilateral hip joint osteoarthrosis with additional degenerative change about the lumbar spine. IMPRESSION: Nonobstructive bowel gas pattern. Moderate colonic stool load.
--- NOTE | 2020-08-14 21:37 | RADIOLOGY REPORT (SQ) ---
INDICATION: change in ms. COMPARISON: None CORRELATION: None TECHNIQUE: Noncontrast spiral axial CT images were obtained from the skull base to vertex. This exam was performed according to our departmental dose-optimization program, which includes automated exposure control, adjustment of the mA and/or kV according to patient size and/or use of iterative reconstruction techniques. FINDINGS: Due to positioning, imaging is of very limited diagnostic value. No evidence of hemorrhage. There appears be a large old left parietal infarct. Involutional change. No obvious fracture IMPRESSION: Imaging of limited diagnostic value. No obvious intracranial hemorrhage. Apparent old large left parietal infarct..
[2020-08-14 22:15] LABS: ABSOLUTE EOSINOPHILS # (AUTO) 0.1 10^3/uL (0.0-0.6); ABSOLUTE LYMPHOCYTES (AUTO) 0.9 10^3/uL (0.5-4.7); ABSOLUTE MONOCYTES (AUTO) 1.2 10^3/uL (0.1-1.4); ABSOLUTE NEUT (AUTO) 6.6 10^3/uL (1.7-8.2); BASOPHILS % (AUTO) 0.4 % (0-2); EOSINOPHILS % (AUTO) 0.8 % (0-6); HEMATOCRIT 28.9 % (36.0-47.0); HEMOGLOBIN 9.9 g/dL (12.0-15.5); LYMPHOCYTES % (AUTO) 10.6 % (13-45); MEAN CORPUSCULAR HEMOGLOBIN 27.4 pg (27.0-33.4); MEAN CORPUSCULAR HGB CONC 34.3 g/dL (32.0-36.0); MEAN CORPUSCULAR VOLUME 80 fl (80-97); MONOCYTES % (AUTO) 13.7 % (3-13); PLATELET COUNT 192 10^3/uL (150-450); RED BLOOD COUNT 3.61 10^6/uL (3.72-5.28); RED CELL DISTRIBUTION WIDTH 17.5 % (11.5-14.0); SEGMENTED NEUTROPHILS % (AUTO) 74.5 % (42-78); TOTAL CELLS COUNTED % (AUTO) 100 %; WHITE BLOOD COUNT 8.9 10^3/uL (4.0-10.5)
[2020-08-14 22:34] LABS: ALBUMIN 3.4 g/dL (3.5-5.0); ALKALINE PHOSPHATASE 89 U/L (38-126); ANION GAP 7 (5-19); ASPARTATE AMINO TRANSFERASE 23 U/L (14-36); BILIRUBIN,DIRECT 0.2 mg/dL (0.0-0.4); BILIRUBIN,TOTAL 0.7 mg/dL (0.2-1.3); BLOOD UREA NITROGEN 37 mg/dL (7-20); CALCIUM 8.8 mg/dL (8.4-10.2); CARBON DIOXIDE 30 mmol/L (22-30); CHLORIDE 100 mmol/L (98-107); GLUCOSE 108 mg/dL (75-110); POTASSIUM 3.1 mmol/L (3.6-5.0); TOTAL PROTEIN 7.8 g/dL (6.3-8.2)
[2020-08-14] MEDS ORDERED: LACTULOSE SYRUP 20 GM/30 ML UDCUP PO ONE (23:22)
[2020-08-14] MEDS ORDERED: KETAMINE HCL INJ 500 MG/10 ML VIAL IM ONE (23:46)
[2020-08-15 01:07] VITALS: BP 138/122
== END 2020-08-15 01:08 | disposition home or self-care (01) ==
LOC: ER 19:57
DX: K59.00 Constipation, unspecified (principal); E87.6 Hypokalemia; I69.920 Aphasia following unspecified cerebrovascular disease; R56.9 Unspecified convulsions; I87.2 Venous insufficiency (chronic) (peripheral); R53.1 Weakness; I48.91 Unspecified atrial fibrillation; I10 Essential (primary) hypertension; I69.951 Hemiplegia and hemiparesis following unspecified cerebrovascular disease affecting right dominant side
CPT/HCPCS: 99285; 96372; 36415; 85025; 80053; 74022; 70450; J2250; J3490; A9270 ×2